=== PATIENT | female | born 1940 | race Caucasian/White ===

== ENCOUNTER 2018-03-10 19:08 | Emergency (ER) | payer MEDICARE ==
[2018-03-10] MEDS ORDERED: SODIUM CHLORIDE 0.9% 500 ML IV STA (19:47)
--- NOTE | 2018-03-10 19:50 | ED ---
General Adult HPI - General Source: patient, family, RN notes reviewed Mode of arrival: ambulatory Limitations: no limitations <Luiz Smith - Last Filed: 03/10/18 20:53> <Vee Boyd - Last Filed: 03/10/18 23:17> <Giorgi Rice - Last Filed: 03/10/18 23:19> - General Chief complaint: Abdominal Pain Stated complaint: Abd Pain Time Seen by Provider: 03/10/18 19:10 - History of Present Illness Initial comments: This is an 78-year-old female who presents to the emergency department complaining of right upper quadrant abdominal pain. Patient states she has had intermittent pain for years but more recently the pain has become much more frequent and much more intense. Patient states it happens anytime she eats now. Patient denies any fever chills. Patient states the pain radiates to her back. Patient states she does get nauseated sometimes but is not currently nauseated. Patient denies any vomiting. Patient denies any lower abdominal pain. Patient denies any diarrhea. Patient denies chest pain difficulty breathing or shortness of breath. 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 (Luiz Smith) - Related Data Home Medications Medication Instructions Recorded Confirmed Aspirin EC [Ecotrin] 325 mg PO DAILY 03/10/18 03/10/18 Cholecalciferol [Vitamin D3] 1,000 unit PO DAILY 03/10/18 03/10/18 [place]-3 Fatty Acids [[place]-3] 1,000 mg PO DAILY 03/10/18 03/10/18 Previous Rx's Medication Instructions Recorded Dicyclomine [Bentyl] 20 mg PO QID #15 tablet 03/10/18 Allergies Allergy/AdvReac Type Severity Reaction Status Date / Time codeine AdvReac shakey Verified 03/10/18 20:03 Review of Systems ROS Other: All systems not noted in ROS Statement are negative. <Luiz Smith - Last Filed: 03/10/18 20:53> ROS Other: All systems not noted in ROS Statement are negative. <Vee Boyd - Last Filed: 03/10/18 23:17> ROS Other: All systems not noted in ROS Statement are negative. <Giorgi Rice - Last Filed: 03/10/18 23:19> ROS Statement: Those systems with pertinent positive or pertinent negative responses have been documented in the HPI. Past Medical History Past Medical History: No Reported History History of Any Multi-Drug Resistant Organisms: None Reported Past Surgical History: Heart Catheterization With Stent, Tonsillectomy Past Psychological History: No Psychological Hx Reported Smoking Status: Former smoker Past Alcohol Use History: Occasional Past Drug Use History: None Reported <Luiz Smith - Last Filed: 03/10/18 20:53> General Exam Limitations: no limitations <Luiz Smith - Last Filed: 03/10/18 20:53> <Vee Boyd - Last Filed: 03/10/18 23:17> <Giorgi Rice - Last Filed: 03/10/18 23:19> - General Exam Comments Initial Comments: GENERAL: Patient is well-developed and well-nourished. Patient is nontoxic and well- hydrated and is in mild distress. ENT: Neck is soft and supple. No significant lymphadenopathy is noted. Oropharynx is clear. Moist mucous membranes. Neck has full range of motion without eliciting any pain. EYES: The sclera were anicteric and conjunctiva were pink and moist. Extraocular movements were intact and pupils were equal round and reactive to light. Eyelids were unremarkable. PULMONARY: Unlabored respirations. Good breath sounds bilaterally. No audible rales rhonchi or wheezing was noted. CARDIOVASCULAR: There is a regular rate and rhythm without any murmurs gallops or rubs. ABDOMEN: Right upper quadrant abdominal pain. No palpable organomegaly was noted. There is no palpable pulsatile mass. SKIN: Skin is clear with no lesions or rashes and otherwise unremarkable. NEUROLOGIC: Patient is alert and oriented x3. Cranial nerves II through XII are grossly intact. Motor and sensory are also intact. Normal speech, volume and content. Symmetrical smile. MUSCULOSKELETAL: Normal extremities with adequate strength and full range of motion. No lower extremity swelling or edema. No calf tenderness. LYMPHATICS: No significant lymphadenopathy is noted PSYCHIATRIC: Normal psychiatric evaluation. (Luiz Smith) Vital Signs 03/10/18 03/10/18 03/10/18 19:09 21:05 22:19 Temperature 99 F Pulse Rate 100 82 78 Respiratory 20 18 18 Rate Blood Pressure 218/78 211/88 178/76 O2 Sat by Pulse 98 100 94 L Oximetry Medical Decision Making - Lab Data Result diagrams: 03/10/18 20:03 03/10/18 20:03 <Luiz Smith - Last Filed: 03/10/18 20:53> - Lab Data Result diagrams: 03/10/18 20:03 03/10/18 20:03 <Vee Boyd - Last Filed: 03/10/18 23:17> - Lab Data Result diagrams: 03/10/18 20:03 03/10/18 20:03 <Giorgi Rice - Last Filed: 03/10/18 23:19> - Medical Decision Making EKG shows normal sinus rhythm at 83 bpm AL interval is 206 QRS is 84 QT interval 362 QTC is 425. Patient's EKG shows no ST segment elevation or depression or T wave abnormalities are noted. Dr. Lehman will be taking over the care of this patient at 9 PM (Luiz Smith) - Lab Data Lab Results 03/10/18 03/10/18 03/10/18 Range/Units 20:03 20:03 20:08 WBC 8.9 (3.8-10.6) k/uL RBC 5.66 H (3.80-5.40) m/uL Hgb 11.7 (11.4-16.0) gm/dL Hct 39.2 (34.0-46.0) % MCV 69.2 L (80.0-100.0) fL MCH 20.7 L (25.0-35.0) pg MCHC 29.9 L (31.0-37.0) g/dL RDW 16.8 H (11.5-15.5) % Plt Count 195 (150-450) k/uL Neutrophils % 72 % Lymphocytes % 19 % Monocytes % 7 % Eosinophils % 1 % Basophils % 1 % Neutrophils # 6.4 (1.3-7.7) k/uL Lymphocytes # 1.7 (1.0-4.8) k/uL Monocytes # 0.6 (0-1.0) k/uL Eosinophils # 0.1 (0-0.7) k/uL Basophils # 0.0 (0-0.2) k/uL Hypochromasia Marked Anisocytosis Slight Microcytosis Marked Sodium 140 (137-145) mmol/L Potassium 4.9 (3.5-5.1) mmol/L Chloride 108 H (98-107) mmol/L Carbon Dioxide 22 (22-30) mmol/L Anion Gap 10 mmol/L BUN 22 H (7-17) mg/dL Creatinine 0.90 (0.52-1.04) mg/dL Est GFR (CKD-EPI)AfAm 70 (>60 ml/min/1.73 sqM) Est GFR (CKD-EPI)NonAf 61 (>60 ml/min/1.73 sqM) Glucose 98 (74-99) mg/dL Calcium 9.5 (8.4-10.2) mg/dL Total Bilirubin 0.7 (0.2-1.3) mg/dL AST 29 (14-36) U/L ALT 23 (9-52) U/L Alkaline Phosphatase 70 (38-126) U/L Total Protein 7.3 (6.3-8.2) g/dL Albumin 4.0 (3.5-5.0) g/dL Amylase 56 (30-110) U/L Lipase 96 (23-300) U/L Urine Color Light Yellow Urine Appearance Clear (Clear) Urine pH 5.5 (5.0-8.0) Ur Specific [place] 1.005 (1.001-1.035) Urine Protein Negative (Negative) Urine Glucose (UA) Negative (Negative) Urine Ketones Negative (Negative) Urine Blood Negative (Negative) Urine Nitrite Negative (Negative) Urine Bilirubin Negative (Negative) Urine Urobilinogen <2.0 (<2.0) mg/dL Ur Leukocyte Esterase Negative (Negative) Disposition <Luiz Smith - Last Filed: 03/10/18 20:53> Is patient prescribed a controlled substance at d/c from ED?: No <Vee Boyd - Last Filed: 03/10/18 23:17> Is patient prescribed a controlled substance at d/c from ED?: No <Giorgi Rice - Last Filed: 03/10/18 23:19> Clinical Impression: Abdominal pain, Biliary colic, Hypertension Disposition: HOME SELF-CARE Condition: Good Instructions: Abdominal Pain (ED), Hypertension (ED) Prescriptions: Dicyclomine [Bentyl] 20 mg PO QID #15 tablet Referrals: Fran Mendoza MD [Medical Doctor] - 1-2 days James Drake MD [REFERRING] - 1-2 days
[2018-03-10 20:13] LABS: Anisocytosis Slight; Basophils % (A) 1 %; Eosinophils # (A) 0.1 k/uL (0-0.7); Eosinophils % (A) 1 %; HCT 39.2 % (34.0-46.0); HGB 11.7 gm/dL (11.4-16.0); Hypochromasia Marked; Lymphocytes # (A) 1.7 k/uL (1.0-4.8); Lymphocytes % (A) 19 %; MCH 20.7 pg (25.0-35.0); MCHC 29.9 g/dL (31.0-37.0); MCV 69.2 fL (80.0-100.0); Mean Platelet Volume 6.1; Microcytosis Marked; Monocytes # (A) 0.6 k/uL (0-1.0); Monocytes % (A) 7 %; Neutrophils # (A) 6.4 k/uL (1.3-7.7); Neutrophils % (A) 72 %; Platelet Count 195 k/uL (150-450); RBC 5.66 m/uL (3.80-5.40); RDW 16.8 % (11.5-15.5); WBC 8.9 k/uL (3.8-10.6)
[2018-03-10 20:28] LABS: Calcium 9.5 mg/dL (8.4-10.2); Potassium 4.9 mmol/L (3.5-5.1); Total Bilirubin 0.7 mg/dL (0.2-1.3); Total Protein 7.3 g/dL (6.3-8.2)
[2018-03-10 20:33] LABS: Appearance,Urine Clear (Clear); Bilirubin,Urine Negative (Negative); Blood,Urine Negative (Negative); Color,Urine Light Yellow; Glucose,Urine (UA) Negative (Negative); Ketones,Urine Negative (Negative); Leukocyte Esterase,Urine Negative (Negative); Nitrite,Urine Negative (Negative); PH, Urine 5.5 (5.0-8.0); Protein,Urine Negative (Negative); Specific Gravity,Urine 1.005 (1.001-1.035); Urobilinogen,Urine <2.0 mg/dL (<2.0)
--- NOTE | 2018-03-10 20:58 | US ---
EXAMINATION TYPE: US gallbladder DATE OF EXAM: 03/10/2018 COMPARISON: NONE CLINICAL HISTORY: Pain. RUQ pain EXAM MEASUREMENTS: Liver Length: 17.7 cm Gallbladder Wall: 0.3 cm CBD: 1.1 cm Right Kidney: 10.0 x 4.0 x 4.0 cm Pancreas: Tail obscured by overlying bowel gas Liver: Increased attenuation Gallbladder: Multiple stones seen. Evidence for sonographic Vega's sign: No CBD: Dilated. Right Kidney: No hydronephrosis or masses seen Multiple gallstones seen with dilated CBD 1..1 cm. IMPRESSION: Numerous gallstones. Large common bile duct but no dilated intrahepatic bile ducts. This could relate to some chronic gallbladder dysfunction.
[2018-03-10 21:06] VITALS: RESP 18
[2018-03-10] MEDS ORDERED: ONDANSETRON 4 MG/2 ML VIAL IVP STA (21:14)
[2018-03-10] MEDS ORDERED: HYDROmorphone 1 MG/ML 1 ML SYRINGE IVP STA (21:14)
--- NOTE | 2018-03-10 22:13 | CT ---
EXAMINATION TYPE: CT abdomen pelvis w con DATE OF EXAM: 03/10/2018 COMPARISON: None HISTORY: Right upper quadrant abdominal pain. CT DLP: 1525.2 mGycm Automated exposure control for dose reduction was used. TECHNIQUE: Helical acquisition of images was performed from the lung bases through the pelvis. CONTRAST: Performed without Oral Contrast and with IV Contrast, patient injected with 100ml mL of Isovue 300. FINDINGS: Lung bases are clear of consolidation. There is no pleural effusion. Heart appears slightly enlarged. Liver and spleen appear normal. Pancreas appears normal. Bile ducts are not dilated. There are multip le calcified gallstones. There is no adrenal mass. Kidneys show satisfactory contrast opacification. There is no hydronephrosi s. There is no retroperitoneal adenopathy. Abdominal aorta is atheromatous. Bladder distends smoothly . Uterus is anteverted. There is no intestinal wall thickening. There are no dilated loops. Appendix appears normal. There are spondylotic changes in the lumbar spine. There is slight enlargement of the endometrial cavity. There is umbilical hernia that contains fat. There is probably bony spinal steno sis at L4-5 due to facet arthropathy and disc bulging. There is similar change also at L3-4. IMPRESSION: CALCIFIED GALLSTONES. NO DILATED DUCTS. MILD CARDIOMEGALY. SLIGHT ENLARGEMENT OF ENDOMETRIAL CAVITY FOR THE PATIENT'S AGE THAT COULD RELATE TO SOME HYPERPLASIA. NORMAL APPENDIX. 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
[2018-03-10 23:26] VITALS: BP 191/64; PULSE 80; TEMP 97.9
== END 2018-03-10 23:28 | disposition home or self-care (01) ==
LOC: EC 19:08
DX: K80.50 Calculus of bile duct without cholangitis or cholecystitis without obstruction (principal); I10 Essential (primary) hypertension; Z87.891 Personal history of nicotine dependence; Z79.82 Long term (current) use of aspirin; Z79.899 Other long term (current) drug therapy; Z88.5 Allergy status to narcotic agent; Z95.5 Presence of coronary angioplasty implant and graft
CPT/HCPCS: 36415; 93005; 80053; 82150; 83690; 85025; 81003; 76705; 74177; 99284; 96374; 96375; 96361 ×3; J2405; J1170; Q9967

== ENCOUNTER → 2022-05-20 | Outpatient (CLI) | payer MEDICARE ==
--- NOTE | 2022-05-20 12:37 | CT ---
EXAMINATION TYPE: CT left knee - [facility] Protocol CT DLP: 602 mGycm, Automated exposure control for dose reduction was used. DATE OF EXAM: 05/20/2022 12:27 PM COMPARISON: None CLINICAL INDICATION:Female, 82 years old with history of M25.562 L knee pain; Left ALFREDO knee. TECHNIQUE: Axial images were obtained of the left knee Alfredo protocol . Additional coronal and sagitt al reformatted images and soft tissue and bone window were obtained for review. 3-D reconstruction wa s created on a separate workstation. Contrast used: None Oral contrast used: None FINDINGS: There is no evidence of fracture, subluxation, or dislocation. No significant soft tissue swelling or joint effusion is identified. No focal muscular atrophy or edema is identified. No radiop aque foreign body identified. Degeneration changes of the bilateral hips with osteophyte formation of the acetabulum. There is degeneration of the pubic symphysis. Visualized portions of the pelvis demo nstrate no acute findings. There is degeneration changes involving the left knee with osteophytes of the patella femoral condyles and tibial plateau. The visualized ankles are within normal limits witho ut significant abnormality. There is no acute fractures of the visualized osseous structures. IMPRESSION: 1. Left knee osteoarthritic changes. 2. No evidence of fracture.
== END | disposition home or self-care (01) ==
LOC: RADCTMAIN 11:40
PROVIDERS: ATTEND Orthopaedic Surgery
DX: M17.12 Unilateral primary osteoarthritis, left knee (principal)

== ENCOUNTER → 2022-06-09 | Outpatient (CLI) | payer MEDICARE ==
[2022-06-09 12:58] LABS: Partial Thromboplastin Time 23.2 sec (22.0-30.0); Prothrombin Time 10.4 sec (9.0-12.0)
[2022-06-09 19:22] LABS: African American GFR (CKD) 53.4 (60.0-200.0); Albumin 4.6 g/dL (3.8-4.9); Albumin/Globulin Ratio 1.84 (1.60-3.17); Anion Gap 13.6 mmol/L (10.00-18.00); BUN/Creat Ratio 19.09 Ratio (12.00-20.00); Calcium 10.2 mg/dL (8.7-10.3); Carbon Dioxide 24.4 mmol/L (20.0-27.5); Globulin 2.5 g/dL (1.6-3.3); Non-African American GFR(CKD) 46.1 (60.0-200.0); Potassium 4.8 mmol/L (3.5-5.5); Total Bilirubin 0.7 mg/dL (0.30-1.20); Total Protein 7.1 g/dL (6.2-8.2)
[2022-06-09 19:33] LABS: HCT 41.4 % (37.2-46.3); HGB 12.3 g/dL (12.0-15.0); MCHC 29.7 g/dL (32.0-37.0); MCV 70.6 fL (80.0-97.0); NRBC Per 100 WBC 0 /100 WBCS (0.0-0.0); Platelet Count 203 X 10*3/uL (140-440); RBC 5.86 X 10*6/uL (4.10-5.20); RDW 19.5 % (11.5-14.5); WBC 8.71 X 10*3/uL (4.50-10.00)
[2022-06-09 20:06] LABS: Appearance,Urine Clear (Clear); Bilirubin,Urine Negative (Negative); Blood,Urine Negative (Negative); Color,Urine Yellow (Yellow); Ketones,Urine Negative (Negative); Nitrite,Urine Negative (Negative); Specific Gravity,Urine 1.023 (1.001-1.030); Urobilinogen,Urine 0.2 (0.2,1.0)
[2022-06-09 20:12] LABS: Bacteria,Urine 1+ /HPF (None Seen)
== END | disposition home or self-care (01) ==
LOC: LABWHC1 11:53
PROVIDERS: ATTEND Orthopaedic Surgery
DX: Z01.812 Encounter for preprocedural laboratory examination (principal); M17.12 Unilateral primary osteoarthritis, left knee
CPT/HCPCS: 36415; 80053; 81001; 85027; 85610; 85730; 87070

== ENCOUNTER 2022-06-13 18:25 | Emergency (ER) | payer MEDICARE ==
--- NOTE | 2022-06-13 19:11 | ED ---
General Adult HPI - General Chief complaint: Recheck/Abnormal Lab/Rx Stated complaint: hypertension Time Seen by Provider: 06/13/22 18:35 Source: patient, RN notes reviewed Mode of arrival: ambulatory Limitations: no limitations - History of Present Illness Initial comments: 82-year-old female presents to the emergency department for evaluation of kayla knight blood pressure. Patient states she recently began taking losartan twice daily for hypertension. States she is preparing for a knee surgery and is in the process of getting medical clearance. States this antihypertensive new for her and has taken relatively few medications over the years. States she does have a history of CAD and had 2 cardiac stents. States she is scheduled to see her venetian blind worker on Wednesday for cardiac clearance, then will see her PCP for blood pressure reevaluation that afternoon. Patient states her blood pressure was 176/83 using an automatic cuff yesterday. Reports manual pressure of 220/116 today. States she feels well. Denies headache, dizziness, blurry vis ion, chest pain, shortness of breath, abdominal pain, nausea, vomiting, diarrhea, or dysuria. - Related Data Home Medications Medication Instructions Recorded Confirmed Aspirin EC [Ecotrin] 325 mg PO DAILY 03/10/18 03/10/18 Cholecalciferol [Vitamin D3] 1,000 unit PO DAILY 03/10/18 03/10/18 [place]-3 Fatty Acids [[place]-3] 1,000 mg PO DAILY 03/10/18 03/10/18 Previous Rx's Medication Instructions Recorded Dicyclomine [Bentyl] 20 mg PO QID #15 tablet 03/10/18 Allergies Allergy/AdvReac Type Severity Reaction Status Date / Time codeine AdvReac abeba Verified 06/13/22 18:31 Review of Systems ROS Statement: Those systems with pertinent positive or pertinent negative responses have been documented in the HPI. ROS Other: All systems not noted in ROS Statement are negative. Past Medical History Past Medical History: Hypertension History of Any Multi-Drug Resistant Organisms: None Reported Past Surgical History: Heart Catheterization With Stent, Tonsillectomy Past Psychological History: No Psychological Hx Reported Smoking Status: Never smoker Past Alcohol Use History: Occasional Past Drug Use History: None Reported General Exam Limitations: no limitations (Well-developed, well-nourished female in no acute distress.) General appearance: alert, in no apparent distress Head exam: Present: other (Large swollen area right TMJ- known cyst) Eye exam: Present: normal appearance, PERRL, EOMI. Absent: scleral icterus, conjunctival injection, periorbital swelling, periorbital tenderness ENT exam: Present: normal oropharynx, mucous membranes moist Neck exam: Present: normal inspection, full ROM. Absent: tenderness, lymphadenopathy Respiratory exam: Present: normal lung sounds bilaterally. Absent: respiratory distress, wheezes, rales, rhonchi, stridor, chest wall tenderness Cardiovascular Exam: Present: regular rate, normal rhythm, normal heart sounds, systolic murmur GI/Abdominal exam: Present: soft, normal bowel sounds. Absent: distended, tenderness, guarding, rebound, rigid Back exam: Absent: CVA tenderness (R) Neurological exam: Present: alert, oriented X3, normal gait Psychiatric exam: Present: anxious (patient is anxious about high blood pressure as she is scheduled for a knee surgery and is concerned that this will impact her surgery) Skin exam: Present: warm, dry, intact, normal color. Absent: rash Course Vital Signs 06/13/22 06/13/22 06/13/22 18:27 20:05 21:40 Temperature 98.1 F 97.6 F Pulse Rate 83 75 Respiratory 20 18 Rate Blood Pressure 221/83 199/104 158/74 O2 Sat by Pulse 99 98 Oximetry - Reevaluation(s) Reevaluation #1: 06/13/22 21:30 Several discussions with patient and family members about realistic expectation of goal blood pressure given patient has only been on new anti-hypertensive medications for a couple of days, and has not been taking any antihypertensive medications for the past few years. Family explains that she has only recently begun monitoring her blood pressure again as she is very concerned about her knee surgery. Patient is using an automated cuff with the assistance of family. I rechecked patient's blood pressure manually on her left arm after giving a small dose of Ativan and found it to be 158/74. Patient and family are reassured by this and verbalize readiness for discharge. Medical Decision Making - Medical Decision Making This is a pleasant 82-year-old female with a past medical history of CAD and cardiac stents who presents to the emergency department for evaluation of hypertension. Upon exam, patient is well-appearing, pleasant, somewhat anxious, and in no acute distress. Physical exam findings are overall unremarkable. In preparation for an upcoming knee surgery, patient saw her PCP for medical clearance. She was started on an antihypertensive medication this past week that she has been taking as prescribed. She is closely monitoring her blood pressure at home and found it to be substantially elevated today (200s/110s), despite taking her antihypertensive. Laboratory studies were obtained. Troponin negative. BUN 22, creatinine 1.09. GFR 47. Renal function is diminished from 2018 labs, however is unchanged from laboratory studies obtained this past week. Patient was given an Ativan and reports feeling improved. Recheck of blood pressure using manual cuff revealed reading of 158/74. Findings were discussed with patient and family. Patient is encouraged to continue taking her antihypertensive medication as prescribed. She is scheduled to see her PCP and ven[employer]ian blind worker on Wednesday. Return parameters were discussed in detail. Patient and family verbalized understanding and agreed with this plan. Attending: Dwayne - Lab Data Result diagrams: 06/13/22 19:20 06/13/22 19:20 Lab Results 06/13/22 06/13/22 06/13/22 Range/Units 19:20 19:20 19:20 WBC 10.2 (3.8-10.6) k/uL RBC 5.82 H (3.80-5.40) m/uL Hgb 12.6 (11.4-16.0) gm/dL Hct 40.5 (34.0-46.0) % MCV 69.6 L (80.0-100.0) fL MCH 21.7 L (25.0-35.0) pg MCHC 31.2 (31.0-37.0) g/dL RDW 17.6 H (11.5-15.5) % Plt Count 181 (150-450) k/uL MPV 7.7 Neutrophils % 70 % Lymphocytes % 19 % Monocytes % 7 % Eosinophils % 2 % Basophils % 1 % Neutrophils # 7.2 (1.3-7.7) k/uL Lymphocytes # 2.0 (1.0-4.8) k/uL Monocytes # 0.7 (0-1.0) k/uL Eosinophils # 0.2 (0-0.7) k/uL Basophils # 0.1 (0-0.2) k/uL Hypochromasia Marked Poikilocytosis Slight Anisocytosis Slight Microcytosis Marked Sodium 142 (137-145) mmol/L Potassium 4.6 (3.5-5.1) mmol/L Chloride 108 H (98-107) mmol/L Carbon Dioxide 25 (22-30) mmol/L Anion Gap 9 mmol/L BUN 23 H (7-17) mg/dL Creatinine 1.09 H (0.52-1.04) mg/dL Est GFR (CKD-EPI)AfAm 54 (>60 ml/min/1.73 sqM) Est GFR (CKD-EPI)NonAf 47 (>60 ml/min/1.73 sqM) Glucose 109 H (74-99) mg/dL Calcium 9.5 (8.4-10.2) mg/dL Total Bilirubin 0.8 (0.2-1.3) mg/dL AST 24 (14-36) U/L ALT 22 (4-34) U/L Alkaline Phosphatase 85 (38-126) U/L Troponin I <0.012 (0.000-0.034) ng/mL Total Protein 7.6 (6.3-8.2) g/dL Albumin 4.6 (3.5-5.0) g/dL - EKG Data EKG shows normal: sinus rhythm Rate: normal EKG Comments: EKG obtained at 1907 shows sinus rhythm with first-degree AV block and inferior myocardial infarction, probably old. Ventricular rate 75, ID interval 228, QRS duration 96, QT/QTC 370/399. Interpretation abnormal ECG. Disposition Clinical Impression: Hypertension, Renal insufficiency Disposition: HOME SELF-CARE Condition: Stable Instructions (If sedation given, give patient instructions): Hypertension in the Older Adult (ED) Additional Instructions: Continue taking your blood pressure medications as prescribed. Relax. Avoid stress and exertional activity. Check her blood pressure twice daily and record it. Keep your follow-up appointment scheduled for Wednesday. Return to the emergency department with any new, worsening, or concerning symptoms. Is patient prescribed a controlled substance at d/c from ED?: No Referrals: Sean Medina MD [Primary Care Provider] - 1-2 days Time of Disposition: 21:43
[2022-06-13 20:03] LABS: Albumin 4.6 g/dL (3.5-5.0); Calcium 9.5 mg/dL (8.4-10.2); Potassium 4.6 mmol/L (3.5-5.1); Total Bilirubin 0.8 mg/dL (0.2-1.3); Total Protein 7.6 g/dL (6.3-8.2)
[2022-06-13 20:09] LABS: Anisocytosis Slight; Basophils # (A) 0.1 k/uL (0-0.2); Basophils % (A) 1 %; Eosinophils # (A) 0.2 k/uL (0-0.7); Eosinophils % (A) 2 %; HCT 40.5 % (34.0-46.0); HGB 12.6 gm/dL (11.4-16.0); Hypochromasia Marked; Lymphocytes % (A) 19 %; MCH 21.7 pg (25.0-35.0); MCHC 31.2 g/dL (31.0-37.0); MCV 69.6 fL (80.0-100.0); Mean Platelet Volume 7.7; Microcytosis Marked; Monocytes # (A) 0.7 k/uL (0-1.0); Monocytes % (A) 7 %; Neutrophils # (A) 7.2 k/uL (1.3-7.7); Neutrophils % (A) 70 %; Platelet Count 181 k/uL (150-450); Poikilocytosis Slight; RBC 5.82 m/uL (3.80-5.40); RDW 17.6 % (11.5-15.5); WBC 10.2 k/uL (3.8-10.6)
[2022-06-13 20:10] VITALS: PULSE 75; RESP 18; TEMP 97.6
[2022-06-13] MEDS ORDERED: LORazepam 1 MG TAB PO STA (20:38)
[2022-06-13 21:41] VITALS: BP 158/74
== END 2022-06-13 21:57 | disposition home or self-care (01) ==
LOC: EC 18:25
DX: I10 Essential (primary) hypertension (principal); N28.9 Disorder of kidney and ureter, unspecified; Z88.5 Allergy status to narcotic agent; Z79.82 Long term (current) use of aspirin
CPT/HCPCS: 36415; 80053; 84484; 85025; 93005; 99283

== ENCOUNTER → 2022-06-23 | Outpatient (CLI) | payer MEDICARE ==
[2022-06-23 18:20] LABS: HCT 37.8 % (37.2-46.3); HGB 11.7 g/dL (12.0-15.0); MCH 21.1 pg (27.0-32.0); MCV 68.2 fL (80.0-97.0); NRBC Per 100 WBC 0 /100 WBCS (0.0-0.0); Platelet Count 199 X 10*3/uL (140-440); RBC 5.54 X 10*6/uL (4.10-5.20); RDW 18.6 % (11.5-14.5); WBC 9.67 X 10*3/uL (4.50-10.00)
[2022-06-23 18:24] LABS: African American GFR (CKD) 48.1 (60.0-200.0); Anion Gap 11.2 mmol/L (10.00-18.00); Blood Urea Nitrogen 28.7 mg/dL (9.0-27.0); Carbon Dioxide 23.8 mmol/L (20.0-27.5); Non-African American GFR(CKD) 41.5 (60.0-200.0); Potassium 4.6 mmol/L (3.5-5.5)
== END | disposition home or self-care (01) ==
LOC: LABPAT 12:05
PROVIDERS: ATTEND Internal Medicine Interventional Cardiology
DX: Z01.812 Encounter for preprocedural laboratory examination (principal); I25.5 Ischemic cardiomyopathy
CPT/HCPCS: 80051; 82565; 84520; 85027

== ENCOUNTER 2022-06-26 10:26 | Day surgery (SDC) | payer MEDICARE ==
[~2022-06-26 10:26] MED LIST: ALPRAZolam 0.25 MG TAB PO PRN; ALPRAZolam 0.5 MG TAB PO PRN; ASPIRIN 325 MG TAB PO STA; ATORVASTATIN 80 MG TAB PO STA; HEPARIN SODIUM,PORCINE 10,000 UNIT in SODIUM CHLORIDE 0.9% 1,000 ML IRRIGATION PRN; HEPARIN SODIUM,PORCINE 2,500 UNIT in SODIUM CHLORIDE 0.9% 250 ML IRRIGATION PRN; NITROGLYCERIN SL TABS 0.4 MG TAB SUBLINGUAL PRN; SODIUM CHLORIDE 0.9% 1,000 ML in EMPTY BAG 1 BAG IV ONE
[2022-06-26] MEDS ORDERED: SODIUM CHLORIDE 0.9% 1,000 ML IV ONE (10:56)
[2022-06-26] MEDS ORDERED: VERAPAMIL 2.5 MG/ML 2 ML AMP ONE (11:16)
[2022-06-26] MEDS ORDERED: HEPARIN SODIUM 1,000 UN/ML (10ML VL) ONE (11:57)
[2022-06-26] MEDS ORDERED: MIDAZOLAM 2 MG/2 ML VIAL IVP ONE (12:04)
[2022-06-26] MEDS ORDERED: LIDOCAINE 1% INJ 10MG/ML (5 ML VIAL-PF) SQ ONE (12:10)
[2022-06-26] MEDS ORDERED: VERAPAMIL SYRINGE (5 MG/10 ML) INTRAARTER ONE (12:13)
[2022-06-26] MEDS: HEPARIN SODIUM 1,000 UN/ML (10ML VL) IV ONE ×3 (12:21→13:02)
[2022-06-26] MEDS ORDERED: NITROGLYCERIN SL TABS 0.4 MG TAB SUBLINGUAL ONE ×3 (12:24→13:09)
[2022-06-26] MEDS ORDERED: IOPAMIDOL-370 100ML BTL INJ ONE ×3 (12:39→13:22)
[2022-06-26] MEDS: NITROGLYCERIN 1000MCG/10ML SYRINGE INTRACORON ONE ×2 (13:11→13:17)
[2022-06-26] MEDS ORDERED: CLOPIDOGREL 75 MG TAB ONE (13:19)
[2022-06-26] MEDS ORDERED: CLOPIDOGREL 75 MG TAB PO ONE (13:21)
[2022-06-26] MEDS ORDERED: SODIUM CHLORIDE 0.9% 1,000 ML IV SCH (13:45)
[2022-06-26] MEDS ORDERED: MAG HYDROX/AL HYDROX/SIMETH 30 ML CUP PO PRN (14:33)
--- NOTE | 2022-06-26 16:22 | CC ---
CARDIAC CATHETERIZATION REPORT DATE OF SERVICE: 06/26/2022. PROCEDURES PERFORMED: 1. Left heart catheterization and coronary angiography. 2. Percutaneous transluminal coronary angioplasty and stenting of proximal and mid circumflex coronary artery with drug-eluting stents. PERFORMED BY: Dr. Mojgan Salinas. Moderate conscious sedation time was 71 minutes. The patient was administered Versed. Oxygen saturation, hemodynamics, and EKG were monitored closely. CLINICAL INFORMATION: Ms. Geoffrey Marin is an 82-year-old lady with a history of CAD, previous acute inferior UT with right ventricular infarct requiring an intra-aortic balloon pump and stenting of circumflex performed in 2005, with a temporary pacemaker. She has hypertension and some peripheral vascular disease, and she came into the office to see me because she was planning on having a left total knee arthroplasty by Dr. Lopez. Prior to that, we performed a stress test, which revealed a moderate-size reversible inferolateral defect suggestive of ischemia with a fixed component. She had moderate- to-severe mitral regurgitation with ejection fraction of nearly 50%. She was advised cardiac catheterization after due discussion. She understood all details, as did the 2 granddaughters, and wished to proceed with the procedure. PROCEDURE NOTE: Under local anesthesia and strict aseptic precautions, a 6-Tanzanian introducer was placed in the right radial artery. Using a JL3.5 and JR4 catheters, I performed coronary angiography, and the same right catheter was used to check LV pressure, but LV gram was not performed. I then performed intervention of the proximal and mid circumflex before and after the obtuse marginal branch with 2 drug-eluting stents. Excellent result was achieved. The sheath was taken out, and TR band was applied as per protocol. The saturation in the fingers of the right hand was 94%. There were no complications. This patient received 600 mg of Plavix and also received intravenous heparin, and ACT was about 284. This patient is advised to be on aspirin and Plavix without interruption for 12 months. CARDIAC CATHETERIZATION FINDINGS: The left ventricular end-diastolic pressure is 18 mmHg without any gradient across aortic valve. CORONARY ANGIOGRAPHY FINDINGS: I had some difficulty getting in from the right radial site. There were some spasm and tortuosity. RIGHT CORONARY ARTERY: This vessel is totally occluded in the mid portion with limited antegrade flow, and the opacified segment of the RCA appears to be diffusely diseased. RCA, therefore, has a 100% mid occlusion without much antegrade flow. LEFT MAIN CORONARY ARTERY: Short, patent vessel, free of significant disease, bifurcates into LAD and circumflex. LEFT ANTERIOR DESCENDING CORONARY ARTERY: Good-caliber vessel, extends along the anterior wall, has about a 30% to 40% narrowing in the proximal and mid portion, gives off a good-sized diagonal branch and several septal branches, runs all the way to the apex. There are minor irregularities of anywhere from 30% to 45%, but no significant disease in the entire LAD system. LEFT POSTERIOR CIRCUMFLEX CORONARY ARTERY: Probably a codominant or a dominant vessel, that has a good-sized obtuse marginal. Obtuse marginal origin is free of significant disease other than 20% to 30% narrowing, and obtuse marginal is large and supplies a sizable amount of myocardium. Just proximal to it, there is a 60% narrowing, and distal to the obtuse marginal within the stented segment, there is a long area of about 90% stenosis. Beyond it, the vessel bifurcates into PDA and PLV, both of which have diffuse disease. The circumflex also provides collaterals to the distal RCA as well. The distal RCA seems to be filling from the collaterals to some extent, but there is diffuse disease in the distal branches of the circumflex, but the proximal and mid circumflex before and after the obtuse marginal branch has the significant stenosis. Left ventriculogram was not performed. FINAL IMPRESSION: This patient has elevated filling pressures. No significant gradient across aortic valve. Probably a codominant system with total occlusion of the right coronary artery, and mid circumflex has an in-stent restenosis of 90%, and before the obtuse marginal, there is a 60% to 70% narrowing within the circumflex. Left anterior descending has minor irregularities, no significant disease. RECOMMENDATIONS: I advised PCI of circumflex and proceeded to perform this in the same setting. PCI PROCEDURE DETAILS: I initially tried a JL3.5, but I had difficulty seating the catheter. I switched over to a 3.0, but I still had difficulty. After some trying a couple of catheters, eventually with XB3.0 left guide catheter, I was able to cannulate the left main very well. A Runthrough wire was used to cross the lesion. Wire was kept in the distal branches of circumflex. Pre-dilatation was performed of the area below the area just distal to the obtuse marginal with a 2.5-caliber 15-mm long NC Trek balloon. I then deployed a 15-mm long 3.25-caliber Xience stent with excellent angiographic result. I noted that the area just proximal to the obtuse marginal was also hazy and had about a 70% narrowing in SLOVAK views. I, therefore, decided to proceed with intervention of this vessel. I used a 3.25-caliber Xience stent and deployed this, and the distal end of the stent was kept just before the obtuse marginal branch. Excellent angiographic result was achieved. There was remarkable improvement in the angiographic appearance and flow without complication. The opacification of the diagonal was also excellent. The patient's ACT was 284 with a total of 6000 units of heparin. She received 600 mg of Plavix. Excellent angiographic result was achieved. The sheath was taken out, and TR band was applied, and she was sent to the room in stable condition. Results were discussed with the patient and family. MMODL / IJN: [id number] /
--- NOTE | 2022-06-26 17:28 | CA ---
Transthoracic Echo Report Name: Geoffrey Marin Age: 82 Gender: F : 1940 Exam Date: 06/26/2022 14:02 Exam Location: [facility] Ht (in): 58 Wt (lb): 201 Ordering Physician: Bonilla Salinas MD ([id number]) Attending/Referring Phys: Steel Shot Header Operator Princess Marie RDCS Procedure CPT: Indications: EVALUATE FOR MITRAL REGURGE AND LV FUNCTION Cardiac Hx: Technical Quality: Fair Contrast 1: Total Dose (mL): Contrast 2: Total Dose (mL): MEASUREMENTS (Male / Female) Normal Values 2D ECHO LV Diastolic Diameter PLAX 3.9 cm 4.2 - 5.9 / 3.9 - 5.3 cm LV Systolic Diameter PLAX 2.9 cm IVS Diastolic Thickness 1.3 cm 0.6 - 1.0 / 0.6 - 0.9 cm LVPW Diastolic Thickness 1.3 cm 0.6 - 1.0 / 0.6 - 0.9 cm LV Relative Wall Thickness 0.7 RV Internal Dim ED PLAX 3.6 cm LA Volume 42.0 cm??? 18 - 58 / 22 - 52 cm??? M-MODE Aortic Root Diameter MM 3.3 cm LA Systolic Diameter MM 5.0 cm LA Ao Ratio MM 1.5 AV Cusp Separation MM 1.9 cm DOPPLER AV Peak Velocity 174.8 cm/s AV Peak Gradient 12.2 mmHg LVOT Peak Velocity 75.0 cm/s LVOT Peak Gradient 2.2 mmHg MV Area PHT 2.4 cm??? Mitral E Point Velocity 112.6 cm/s Mitral A Point Velocity 144.3 cm/s Mitral E to A Ratio 0.8 MV Deceleration Time 312.6 ms MV E' Velocity 3.0 cm/s Mitral E to MV E' Ratio 37.0 FINDINGS Left Ventricle Moderate LVH. Left ventricular ejection fraction is estimated at 50-55 %.left ventricular cavity size normal. Right Ventricle Mild right ventricular dilatation. Mild pulmonary hypertension. Right Atrium Normal right atrial size. Left Atrium Left atrial size at the upper limits of normal. Mitral Valve Mitral valve thickened. Moderate mitral annular calcification. moderate mitral regurgitation. Aortic Valve No aortic valve stenosis or regurgitation. Aortic valve sclerosis. Tricuspid Valve Mild tricuspid regurgitation.structurally normal tricuspid valve. Pulmonic Valve Pulmonic valve not well visualized. Pericardium No pericardial effusion. Aorta Normal size aortic root and proximal ascending aorta. CONCLUSIONS 1. The ventricle systolic function borderline normal with moderate hypertrophy 2. Moderate mitral anulus calcification with moderate mitral regurgitation 3. Mild tricuspid regurgitation with mild pulmonary hypertension Previewed by: Dr. Lalitha Haskins MD (Electronically Signed) Final Date: 26 June 2022 17:28
[2022-06-26 17:42] VITALS: RESP 18
[2022-06-26] MEDS ORDERED: LOSARTAN 50 MG TAB PO SCH (21:00)
[2022-06-27 07:49] VITALS: BP 187/61
--- NOTE | 2022-06-27 08:41 | P.DS ---
Providers Attending physician: Bonilla Salinas Primary care physician: Sean Echevarria Miriam Hospital Course: The patient is a pleasant 82-year-old female patient who was admitted to the hospital yesterday and underwent a heart catheterization by Dr. Salinas and stenting of the left circumflex. The patient was seen this morning. She is asymptomatic. She is here with a 90 stable. The patient is going to be discharged home on dual antiplatelet therapy and high intensity statin and follow-up with Dr. Salinas in the office in a week Plan - Discharge Summary Discharge Rx Participant: No New Discharge Prescriptions: Continue Furosemide [Lasix] 20 mg PO DAILY Losartan Potassium [Cozaar] 25 mg PO BID Atorvastatin Calcium [Lipitor] 80 mg PO HS Aspirin 81 mg PO DAILY Clopidogrel [Plavix] 75 mg PO DAILY Metoprolol Tartrate 50 mg PO DAILY Nitroglycerin Sl Tabs [Nitrostat] 0.4 mg SL DAILY PRN PRN Reason: Chest Pain Discharge Medication List Furosemide [Lasix] 20 mg PO DAILY 06/24/22 [History] Losartan Potassium [Cozaar] 25 mg PO BID 06/24/22 [History] Metoprolol Tartrate 50 mg PO DAILY 06/24/22 [History] Aspirin 81 mg PO DAILY 06/26/22 [History] Atorvastatin Calcium [Lipitor] 80 mg PO HS 06/26/22 [History] Clopidogrel [Plavix] 75 mg PO DAILY 06/26/22 [History] Nitroglycerin Sl Tabs [Nitrostat] 0.4 mg SL DAILY PRN 06/26/22 [History] Follow up Appointment(s)/Referral(s): Bonilla Salinas MD [STAFF PHYSICIAN] - 07/08/22 10:30 am ()
[2022-06-27] MEDS ORDERED: ASPIRIN 81 MG PO SCH (09:00)
[2022-06-27] MEDS ORDERED: METOPROLOL TARTRATE 50 MG TAB PO SCH (09:00)
[2022-06-27] MEDS ORDERED: CLOPIDOGREL 75 MG TAB PO SCH (09:00)
[2022-06-27] MEDS ORDERED: ATORVASTATIN 80 MG TAB PO SCH (09:00)
[2022-06-27] MEDS ORDERED: FUROSEMIDE 20 MG TAB PO SCH (09:00)
[2022-06-27 09:44] VITALS: PULSE 64; TEMP 97.7
== END 2022-06-27 10:35 | disposition home or self-care (01) ==
LOC: CATHCVL 10:26 → 6NMEDSUR 13:28 → CATHCVL 06-27 10:35
PROVIDERS: ATTEND Internal Medicine Interventional Cardiology
DX: I34.0 Nonrheumatic mitral (valve) insufficiency (principal); I25.5 Ischemic cardiomyopathy; I73.9 Peripheral vascular disease, unspecified; I10 Essential (primary) hypertension; I25.10 Atherosclerotic heart disease of native coronary artery without angina pectoris; I25.2 Old myocardial infarction; Z98.890 Other specified postprocedural states
CPT/HCPCS: 93306; 93458; C1769 ×3; C9600; C1887 ×3; C1894; C1874 ×2; C1725; J2250; J2001; J1644; Q9967

== ENCOUNTER 2022-07-06 17:15 | Inpatient (IN) | payer MEDICARE ==
[2022-07-06 19:16] LABS: Anisocytosis Slight; Basophils # (A) 0.1 k/uL (0-0.2); Basophils % (A) 1 %; Eosinophils # (A) 0.2 k/uL (0-0.7); Eosinophils % (A) 1 %; HCT 35.5 % (34.0-46.0); HGB 11.1 gm/dL (11.4-16.0); Hypochromasia Slight; Lymphocytes # (A) 2.1 k/uL (1.0-4.8); Lymphocytes % (A) 17 %; MCH 21.5 pg (25.0-35.0); MCHC 31.2 g/dL (31.0-37.0); Mean Platelet Volume 7.5; Microcytosis Marked; Monocytes % (A) 8 %; Neutrophils # (A) 8.8 k/uL (1.3-7.7); Neutrophils % (A) 72 %; Platelet Count 171 k/uL (150-450); Poikilocytosis Slight; RBC 5.15 m/uL (3.80-5.40); RDW 17.3 % (11.5-15.5); WBC 12.4 k/uL (3.8-10.6)
[2022-07-06 19:28] LABS: Prothrombin Time 10.7 sec (9.0-12.0)
[2022-07-06 19:29] LABS: Partial Thromboplastin Time 18.2 sec (22.0-30.0)
--- NOTE | 2022-07-06 19:29 | XR ---
EXAMINATION TYPE: XR chest 2V DATE OF EXAM: 07/06/2022 COMPARISON: NONE HISTORY: Pain TECHNIQUE: 2 views FINDINGS: There is no heart failure nor confluent pneumonic infiltrate. Costophrenic angles are clear . There are no hilar masses. Heart is borderline enlarged. IMPRESSION: Borderline cardiomegaly. No active cardiopulmonary disease.
[2022-07-06 19:30] LABS: Albumin 3.8 g/dL (3.5-5.0); Calcium 8.8 mg/dL (8.4-10.2); Potassium 4.3 mmol/L (3.5-5.1); Total Bilirubin 0.5 mg/dL (0.2-1.3); Total Protein 6.3 g/dL (6.3-8.2)
--- NOTE | 2022-07-06 19:31 | CT ---
EXAMINATION TYPE: CT brain wo con for TPA DATE OF EXAM: 07/06/2022 COMPARISON: None HISTORY: ams CT DLP: 1048.4 mGycm Automated exposure control for dose reduction was used. Images obtained of the brain without contrast. There is cerebral cortical atrophy. There is 2 x 1 cm area of hypodensity anterior right internal cap emily. There are smaller 1.5 similar hypodensity anterior left internal capsule. No midline shift. No sign of intracranial hemorrhage. Calvarium is intact. IMPRESSION: Cerebral atrophy. 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 No acute abnormality.
[2022-07-06] MEDS ORDERED: ASPIRIN 81 MG PO STA (20:07)
[2022-07-06] MEDS ORDERED: SODIUM CHLORIDE 0.9% 500 ML 500 ML IV STA (20:07)
[2022-07-06 20:30] LABS: Appearance,Urine Clear (Clear); Bilirubin,Urine Negative (Negative); Blood,Urine Negative (Negative); Color,Urine Light Yellow; Glucose,Urine (UA) Negative (Negative); Ketones,Urine Negative (Negative); Leukocyte Esterase,Urine Negative (Negative); Nitrite,Urine Negative (Negative); Protein,Urine Negative (Negative); Specific Gravity,Urine 1.011 (1.001-1.035); Urobilinogen,Urine <2.0 mg/dL (<2.0)
[2022-07-06] MEDS ORDERED: NALOXONE 0.4 MG/ML 1 ML VIAL IV PRN (21:14)
[2022-07-06] MEDS ORDERED: ACETAMINOPHEN TAB 325 MG TAB PO PRN (21:14)
--- NOTE | 2022-07-06 21:17 | ED ---
Neuro HPI - General Chief Complaint: Neuro Symptoms/Deficit Stated Complaint: stroke symptoms Time Seen by Provider: 07/06/22 17:47 Source: patient, EMS Mode of arrival: EMS Limitations: no limitations - History of Present Illness Is the patient presenting with stroke symptoms?: Yes Last Known Well Date: 07/06/22 -: unknown Initial Comments: This patient is an 82-year-old woman who is here to have evaluation for possible stroke. When I review the patient, she states that she feels well. She denies any symptoms. Her family became concerned when she was speaking with a family member and today and her words sounded slurred. The patient firmly states that she believes this is because she was eating a sandwich at the time. Patient's family maintains that there was some slurring even after she had finished eating. The checked her and felt that she had some left-sided facial droop. The patient is denying any sensation of this. She denies any other weakness or change in sensation. No headache. Location: speech, left face History of same: No Place: home Severity: mild Improves With: none Worsens With: none On Anticoagulants: No Context: sudden onset Associated Symptoms: denies other symptoms Treatments Prior to Arrival: none - Related Data Home Medications: Home Medications Medication Instructions Recorded Confirmed Furosemide [Lasix] 20 mg PO DAILY 06/24/22 07/06/22 Losartan Potassium [Cozaar] 25 mg PO BID 06/24/22 07/06/22 Aspirin 81 mg PO DAILY 06/26/22 07/06/22 Atorvastatin Calcium [Lipitor] 80 mg PO HS 06/26/22 07/06/22 Clopidogrel [Plavix] 75 mg PO DAILY 06/26/22 07/06/22 Nitroglycerin Sl Tabs [Nitrostat] 0.4 mg SL DAILY PRN 06/26/22 07/06/22 Previous Rx's Medication Instructions Recorded Famotidine [Pepcid] 20 mg PO DAILY #30 tab 07/10/22 Metoprolol Tartrate 25 mg PO BID #60 tab 07/10/22 amLODIPine [Norvasc] 10 mg PO DAILY #30 tablet 07/10/22 Allergies/Adverse Reactions: Allergies Allergy/AdvReac Type Severity Reaction Status Date / Time donny us Verified 07/06/22 20:11 Review of Systems ROS Statement: Those systems with pertinent positive or pertinent negative responses have been documented in the HPI. ROS Other: All systems not noted in ROS Statement are negative. Constitutional: Denies: fever, chills Eyes: Denies: eye pain, vision change ENT: Denies: congestion Respiratory: Denies: cough, dyspnea Cardiovascular: Denies: chest pain, palpitations, syncope Gastrointestinal: Denies: abdominal pain, vomiting, diarrhea Genitourinary: Denies: dysuria, hematuria Musculoskeletal: Denies: back pain Skin: Denies: rash Neurological: Reports: weakness. Denies: headache, numbness, paresthesias General Exam Limitations: no limitations General appearance: alert, in no apparent distress Head exam: Present: atraumatic, normocephalic Eye exam: Present: normal appearance, PERRL, EOMI. Absent: scleral icterus, conjunctival injection, nystagmus ENT exam: Present: normal oropharynx, other (Patient has approximately 3 cm right parotid mass.) Neck exam: Present: normal inspection, full ROM Respiratory exam: Present: normal lung sounds bilaterally. Absent: respiratory distress, wheezes, rales, rhonchi, stridor Cardiovascular Exam: Present: regular rate, normal rhythm, normal heart sounds. Absent: systolic murmur, diastolic murmur, rubs, gallop GI/Abdominal exam: Present: soft. Absent: distended, tenderness, guarding, rebound, rigid, mass Extremities exam: Present: normal inspection, normal capillary refill. Absent: pedal edema, calf tenderness Back exam: Present: normal inspection. Absent: CVA tenderness (R), CVA tenderness (L) Neurological exam: Present: alert, oriented X3, motor sensory deficit. Absent: CN II-XII intact Expanded Patient oriented to: Present: person, place, time Speech: Present: fluid speech Cranial nerves: EOM's Intact: Normal, Tongue Deviation: Normal, Facial Palsy with Forehead Movement: Abnormal Left Cerebellar function: Finger to Nose: Normal Sensory exam: Upper Extremity Light Touch: Normal, Lower Extremity Light Touch: Normal Motor strength exam: RUE: 5, LUE: 5, RLE: 5, LLE: 5 Eye Response: (4) open spontaneously Motor Response: (6) obeys commands Verbal Response: (5) oriented Skin exam: Present: warm, dry, intact, normal color. Absent: rash Stroke MDM - Lab Data Result diagrams: 07/10/22 06:51 07/10/22 06:51 Lab Results 07/06/22 07/06/22 07/06/22 Range/Units 18:37 18:37 18:37 WBC 12.4 H (3.8-10.6) k/uL RBC 5.15 (3.80-5.40) m/uL Hgb 11.1 L (11.4-16.0) gm/dL Hct 35.5 (34.0-46.0) % MCV 69.0 L (80.0-100.0) fL MCH 21.5 L (25.0-35.0) pg MCHC 31.2 (31.0-37.0) g/dL RDW 17.3 H (11.5-15.5) % Plt Count 171 (150-450) k/uL MPV 7.5 Neutrophils % 72 % Lymphocytes % 17 % Monocytes % 8 % Eosinophils % 1 % Basophils % 1 % Neutrophils # 8.8 H (1.3-7.7) k/uL Lymphocytes # 2.1 (1.0-4.8) k/uL Monocytes # 1.0 (0-1.0) k/uL Eosinophils # 0.2 (0-0.7) k/uL Basophils # 0.1 (0-0.2) k/uL Hypochromasia Slight Poikilocytosis Slight Anisocytosis Slight Microcytosis Marked PT 10.7 (9.0-12.0) sec INR 1.0 (<1.2) APTT 18.2 L (22.0-30.0) sec Sodium 142 (137-145) mmol/L Potassium 4.3 (3.5-5.1) mmol/L Chloride 108 H (98-107) mmol/L Carbon Dioxide 26 (22-30) mmol/L Anion Gap 8 mmol/L BUN 33 H (7-17) mg/dL Creatinine 1.06 H (0.52-1.04) mg/dL Est GFR (CKD-EPI)AfAm 56 (>60 ml/min/1.73 sqM) Est GFR (CKD-EPI)NonAf 48 (>60 ml/min/1.73 sqM) Glucose 89 (74-99) mg/dL POC Glucose (mg/dL) (70-110) mg/dL POC Glu Maintenance Fitter ID Estimated Ave Glu mg/dL Hemoglobin A1c (0.0-6.0) % Calcium 8.8 (8.4-10.2) mg/dL Total Bilirubin 0.5 (0.2-1.3) mg/dL AST 21 (14-36) U/L ALT 24 (4-34) U/L Alkaline Phosphatase 66 (38-126) U/L Troponin I (0.000-0.034) ng/mL Total Protein 6.3 (6.3-8.2) g/dL Albumin 3.8 (3.5-5.0) g/dL Triglycerides (0.00-149.00) mg/dL Cholesterol (0.00-200.00) mg/dL LDL Cholesterol, Calc (0.0-131.0) mg/dL VLDL Cholesterol, Calc (5.00-40.00) mg/dL HDL Cholesterol (40.00-60.00) mg/dL Cholesterol/HDL Ratio Ratio Vitamin B12 (200.0-944.0) pg/mL Folate (4.40-31.00) ng/mL TSH (0.465-4.680) mIU/L Urine Color Urine Appearance (Clear) Urine pH (5.0-8.0) Ur Specific [place] (1.001-1.035) Urine Protein (Negative) Urine Glucose (UA) (Negative) Urine Ketones (Negative) Urine Blood (Negative) Urine Nitrite (Negative) Urine Bilirubin (Negative) Urine Urobilinogen (<2.0) mg/dL Ur Leukocyte Esterase (Negative) 07/06/22 07/06/22 07/06/22 Range/Units 18:37 18:37 18:37 WBC (3.8-10.6) k/uL RBC (3.80-5.40) m/uL Hgb (11.4-16.0) gm/dL Hct (34.0-46.0) % MCV (80.0-100.0) fL MCH (25.0-35.0) pg MCHC (31.0-37.0) g/dL RDW (11.5-15.5) % Plt Count (150-450) k/uL MPV Neutrophils % % Lymphocytes % % Monocytes % % Eosinophils % % Basophils % % Neutrophils # (1.3-7.7) k/uL Lymphocytes # (1.0-4.8) k/uL Monocytes # (0-1.0) k/uL Eosinophils # (0-0.7) k/uL Basophils # (0-0.2) k/uL Hypochromasia Poikilocytosis Anisocytosis Microcytosis PT (9.0-12.0) sec INR (<1.2) APTT (22.0-30.0) sec Sodium (137-145) mmol/L Potassium (3.5-5.1) mmol/L Chloride (98-107) mmol/L Carbon Dioxide (22-30) mmol/L Anion Gap mmol/L BUN (7-17) mg/dL Creatinine (0.52-1.04) mg/dL Est GFR (CKD-EPI)AfAm (>60 ml/min/1.73 sqM) Est GFR (CKD-EPI)NonAf (>60 ml/min/1.73 sqM) Glucose (74-99) mg/dL POC Glucose (mg/dL) (70-110) mg/dL POC Glu Maintenance Fitter ID Estimated Ave Glu mg/dL 116 Hemoglobin A1c 5.7 (0.0-6.0) % Calcium (8.4-10.2) mg/dL Total Bilirubin (0.2-1.3) mg/dL AST (14-36) U/L ALT (4-34) U/L Alkaline Phosphatase (38-126) U/L Troponin I 0.019 (0.000-0.034) ng/mL Total Protein (6.3-8.2) g/dL Albumin (3.5-5.0) g/dL Triglycerides (0.00-149.00) mg/dL Cholesterol (0.00-200.00) mg/dL LDL Cholesterol, Calc (0.0-131.0) mg/dL VLDL Cholesterol, Calc (5.00-40.00) mg/dL HDL Cholesterol (40.00-60.00) mg/dL Cholesterol/HDL Ratio Ratio Vitamin B12 (200.0-944.0) pg/mL Folate (4.40-31.00) ng/mL TSH 2.860 (0.465-4.680) mIU/L Urine Color Urine Appearance (Clear) Urine pH (5.0-8.0) Ur Specific [place] (1.001-1.035) Urine Protein (Negative) Urine Glucose (UA) (Negative) Urine Ketones (Negative) Urine Blood (Negative) Urine Nitrite (Negative) Urine Bilirubin (Negative) Urine Urobilinogen (<2.0) mg/dL Ur Leukocyte Esterase (Negative) 07/06/22 07/06/22 07/06/22 Range/Units 18:37 18:37 19:11 WBC (3.8-10.6) k/uL RBC (3.80-5.40) m/uL Hgb (11.4-16.0) gm/dL Hct (34.0-46.0) % MCV (80.0-100.0) fL MCH (25.0-35.0) pg MCHC (31.0-37.0) g/dL RDW (11.5-15.5) % Plt Count (150-450) k/uL MPV Neutrophils % % Lymphocytes % % Monocytes % % Eosinophils % % Basophils % % Neutrophils # (1.3-7.7) k/uL Lymphocytes # (1.0-4.8) k/uL Monocytes # (0-1.0) k/uL Eosinophils # (0-0.7) k/uL Basophils # (0-0.2) k/uL Hypochromasia Poikilocytosis Anisocytosis Microcytosis PT (9.0-12.0) sec INR (<1.2) APTT (22.0-30.0) sec Sodium (137-145) mmol/L Potassium (3.5-5.1) mmol/L Chloride (98-107) mmol/L Carbon Dioxide (22-30) mmol/L Anion Gap mmol/L BUN (7-17) mg/dL Creatinine (0.52-1.04) mg/dL Est GFR (CKD-EPI)AfAm (>60 ml/min/1.73 sqM) Est GFR (CKD-EPI)NonAf (>60 ml/min/1.73 sqM) Glucose (74-99) mg/dL POC Glucose (mg/dL) (70-110) mg/dL POC Glu Maintenance Fitter ID Estimated Ave Glu mg/dL Hemoglobin A1c (0.0-6.0) % Calcium (8.4-10.2) mg/dL Total Bilirubin (0.2-1.3) mg/dL AST (14-36) U/L ALT (4-34) U/L Alkaline Phosphatase (38-126) U/L Troponin I (0.000-0.034) ng/mL Total Protein (6.3-8.2) g/dL Albumin (3.5-5.0) g/dL Triglycerides (0.00-149.00) mg/dL Cholesterol (0.00-200.00) mg/dL LDL Cholesterol, Calc (0.0-131.0) mg/dL VLDL Cholesterol, Calc (5.00-40.00) mg/dL HDL Cholesterol (40.00-60.00) mg/dL Cholesterol/HDL Ratio Ratio Vitamin B12 395.0 (200.0-944.0) pg/mL Folate 9.10 (4.40-31.00) ng/mL TSH (0.465-4.680) mIU/L Urine Color Light Yellow Urine Appearance Clear (Clear) Urine pH 5.0 (5.0-8.0) Ur Specific [place] 1.011 (1.001-1.035) Urine Protein Negative (Negative) Urine Glucose (UA) Negative (Negative) Urine Ketones Negative (Negative) Urine Blood Negative (Negative) Urine Nitrite Negative (Negative) Urine Bilirubin Negative (Negative) Urine Urobilinogen <2.0 (<2.0) mg/dL Ur Leukocyte Esterase Negative (Negative) 07/07/22 07/07/22 07/08/22 Range/Units 16:47 19:58 06:11 WBC (3.8-10.6) k/uL RBC (3.80-5.40) m/uL Hgb (11.4-16.0) gm/dL Hct (34.0-46.0) % MCV (80.0-100.0) fL MCH (25.0-35.0) pg MCHC (31.0-37.0) g/dL RDW (11.5-15.5) % Plt Count (150-450) k/uL MPV Neutrophils % % Lymphocytes % % Monocytes % % Eosinophils % % Basophils % % Neutrophils # (1.3-7.7) k/uL Lymphocytes # (1.0-4.8) k/uL Monocytes # (0-1.0) k/uL Eosinophils # (0-0.7) k/uL Basophils # (0-0.2) k/uL Hypochromasia Poikilocytosis Anisocytosis Microcytosis PT (9.0-12.0) sec INR (<1.2) APTT (22.0-30.0) sec Sodium (137-145) mmol/L Potassium (3.5-5.1) mmol/L Chloride (98-107) mmol/L Carbon Dioxide (22-30) mmol/L Anion Gap mmol/L BUN (7-17) mg/dL Creatinine (0.52-1.04) mg/dL Est GFR (CKD-EPI)AfAm (>60 ml/min/1.73 sqM) Est GFR (CKD-EPI)NonAf (>60 ml/min/1.73 sqM) Glucose (74-99) mg/dL POC Glucose (mg/dL) 201 H 130 H 127 H (70-110) mg/dL POC Glu Maintenance Fitter Monica Montez Kylee Garcia, Jasmine Estimated Ave Glu mg/dL Hemoglobin A1c (0.0-6.0) % Calcium (8.4-10.2) mg/dL Total Bilirubin (0.2-1.3) mg/dL AST (14-36) U/L ALT (4-34) U/L Alkaline Phosphatase (38-126) U/L Troponin I (0.000-0.034) ng/mL Total Protein (6.3-8.2) g/dL Albumin (3.5-5.0) g/dL Triglycerides (0.00-149.00) mg/dL Cholesterol (0.00-200.00) mg/dL LDL Cholesterol, Calc (0.0-131.0) mg/dL VLDL Cholesterol, Calc (5.00-40.00) mg/dL HDL Cholesterol (40.00-60.00) mg/dL Cholesterol/HDL Ratio Ratio Vitamin B12 (200.0-944.0) pg/mL Folate (4.40-31.00) ng/mL TSH (0.465-4.680) mIU/L Urine Color Urine Appearance (Clear) Urine pH (5.0-8.0) Ur Specific [place] (1.001-1.035) Urine Protein (Negative) Urine Glucose (UA) (Negative) Urine Ketones (Negative) Urine Blood (Negative) Urine Nitrite (Negative) Urine Bilirubin (Negative) Urine Urobilinogen (<2.0) mg/dL Ur Leukocyte Esterase (Negative) 07/08/22 07/08/22 07/08/22 Range/Units 07:50 07:50 07:50 WBC 10.0 (3.8-10.6) k/uL RBC 5.15 (3.80-5.40) m/uL Hgb 10.8 L (11.4-16.0) gm/dL Hct 36.2 (34.0-46.0) % MCV 70.3 L (80.0-100.0) fL MCH 21.0 L (25.0-35.0) pg MCHC 29.9 L (31.0-37.0) g/dL RDW 17.4 H (11.5-15.5) % Plt Count 184 (150-450) k/uL MPV 7.5 Neutrophils % 73 % Lymphocytes % 17 % Monocytes % 5 % Eosinophils % 3 % Basophils % 1 % Neutrophils # 7.3 (1.3-7.7) k/uL Lymphocytes # 1.7 (1.0-4.8) k/uL Monocytes # 0.5 (0-1.0) k/uL Eosinophils # 0.3 (0-0.7) k/uL Basophils # 0.1 (0-0.2) k/uL Hypochromasia Moderate Poikilocytosis Slight Anisocytosis Slight Microcytosis Marked PT (9.0-12.0) sec INR (<1.2) APTT (22.0-30.0) sec Sodium 139 (137-145) mmol/L Potassium 4.6 (3.5-5.1) mmol/L Chloride 110 H (98-107) mmol/L Carbon Dioxide 21 L (22-30) mmol/L Anion Gap 8 mmol/L BUN 34 H (7-17) mg/dL Creatinine 1.10 H (0.52-1.04) mg/dL Est GFR (CKD-EPI)AfAm 53 (>60 ml/min/1.73 sqM) Est GFR (CKD-EPI)NonAf 46 (>60 ml/min/1.73 sqM) Glucose 155 H (74-99) mg/dL POC Glucose (mg/dL) (70-110) mg/dL POC Glu Maintenance Fitter ID Estimated Ave Glu mg/dL Hemoglobin A1c (0.0-6.0) % Calcium 8.8 (8.4-10.2) mg/dL Total Bilirubin (0.2-1.3) mg/dL AST (14-36) U/L ALT (4-34) U/L Alkaline Phosphatase (38-126) U/L Troponin I (0.000-0.034) ng/mL Total Protein (6.3-8.2) g/dL Albumin (3.5-5.0) g/dL Triglycerides 104.00 (0.00-149.00) mg/dL Cholesterol 114.00 (0.00-200.00) mg/dL LDL Cholesterol, Calc 51.9 (0.0-131.0) mg/dL VLDL Cholesterol, Calc 20.80 (5.00-40.00) mg/dL HDL Cholesterol 41.30 (40.00-60.00) mg/dL Cholesterol/HDL Ratio 2.76 Ratio Vitamin B12 (200.0-944.0) pg/mL Folate (4.40-31.00) ng/mL TSH (0.465-4.680) mIU/L Urine Color Urine Appearance (Clear) Urine pH (5.0-8.0) Ur Specific [place] (1.001-1.035) Urine Protein (Negative) Urine Glucose (UA) (Negative) Urine Ketones (Negative) Urine Blood (Negative) Urine Nitrite (Negative) Urine Bilirubin (Negative) Urine Urobilinogen (<2.0) mg/dL Ur Leukocyte Esterase (Negative) 07/08/22 Range/Units 11:53 WBC (3.8-10.6) k/uL RBC (3.80-5.40) m/uL Hgb (11.4-16.0) gm/dL Hct (34.0-46.0) % MCV (80.0-100.0) fL MCH (25.0-35.0) pg MCHC (31.0-37.0) g/dL RDW (11.5-15.5) % Plt Count (150-450) k/uL MPV Neutrophils % % Lymphocytes % % Monocytes % % Eosinophils % % Basophils % % Neutrophils # (1.3-7.7) k/uL Lymphocytes # (1.0-4.8) k/uL Monocytes # (0-1.0) k/uL Eosinophils # (0-0.7) k/uL Basophils # (0-0.2) k/uL Hypochromasia Poikilocytosis Anisocytosis Microcytosis PT (9.0-12.0) sec INR (<1.2) APTT (22.0-30.0) sec Sodium (137-145) mmol/L Potassium (3.5-5.1) mmol/L Chloride (98-107) mmol/L Carbon Dioxide (22-30) mmol/L Anion Gap mmol/L BUN (7-17) mg/dL Creatinine (0.52-1.04) mg/dL Est GFR (CKD-EPI)AfAm (>60 ml/min/1.73 sqM) Est GFR (CKD-EPI)NonAf (>60 ml/min/1.73 sqM) Glucose (74-99) mg/dL POC Glucose (mg/dL) 149 H (70-110) mg/dL POC Glu Maintenance Fitter ID Monica Bejarano Estimated Ave Glu mg/dL Hemoglobin A1c (0.0-6.0) % Calcium (8.4-10.2) mg/dL Total Bilirubin (0.2-1.3) mg/dL AST (14-36) U/L ALT (4-34) U/L Alkaline Phosphatase (38-126) U/L Troponin I (0.000-0.034) ng/mL Total Protein (6.3-8.2) g/dL Albumin (3.5-5.0) g/dL Triglycerides (0.00-149.00) mg/dL Cholesterol (0.00-200.00) mg/dL LDL Cholesterol, Calc (0.0-131.0) mg/dL VLDL Cholesterol, Calc (5.00-40.00) mg/dL HDL Cholesterol (40.00-60.00) mg/dL Cholesterol/HDL Ratio Ratio Vitamin B12 (200.0-944.0) pg/mL Folate (4.40-31.00) ng/mL TSH (0.465-4.680) mIU/L Urine Color Urine Appearance (Clear) Urine pH (5.0-8.0) Ur Specific [place] (1.001-1.035) Urine Protein (Negative) Urine Glucose (UA) (Negative) Urine Ketones (Negative) Urine Blood (Negative) Urine Nitrite (Negative) Urine Bilirubin (Negative) Urine Urobilinogen (<2.0) mg/dL Ur Leukocyte Esterase (Negative) - Thrombolytic Inclusion/Exclusion Thrombolytic Exclusion Criteria: Onset of Symptoms Unknown - Medical Decision Making Patient is a 82-year-old woman brought to have evaluation of slurred speech and left facial droop. We are not able to establish the exact onset of her sym ptoms, therefore patient not TPA candidate. Patient will be admitted to have further evaluation as well as neurology consultation. The patient's speech here is clear though she does have some mild residual left sided facial droop. Was pt. sent in by a medical professional or institution? @ -[No Did you speak to anyone other than the patient for history? @ -[Multiple family members Did you review nursing and triage notes? @ -[agree Were old charts reviewed? @ -[No] Differential Diagnosis? @ -[Differential Weakness: Hypoglycemia, shock, sepsis, hyponatremia, anemia, infection, MO, ETOH, adverse medicine reaction, overdose, stroke, this is not meant to be an all-inclusive list. EKG interpreted by me (3pts min.)? @ -[See chart X-rays interpreted by me (1pt min.)? @ -[See chart CT interpreted by me (1pt min.)? @ -[See chart U/S interpreted by me (1pt. min.)? @ -[none] What testing was considered but not performed? (CT, X-rays, U/S, labs)? Why? @ [None What meds were considered but not given? Why? @ -[TPA is considered, but we were unable to definitively identify symptom onset Did you discuss the management of the patient with other professionals? @ -Admitting physician Did you reconcile home meds? @ -Yes Was smoking cessation discussed for >3mins.? @ -[none] Was critical care preformed (if so, how long)? @ -[none] Were there social determinants of health that impacted care today? How? (Homelessness, low income, unemployed, alcoholism, drug addiction, transportation, low edu. Level, literacy, decrease access to med. care, half-way, rehab)? @ -[No Was there de-escalation of care discussed even if they declined? (Discuss DNR or withdrawal of care, Hospice)? @ -[No What co-morbidities impacted this encounter? (DM, HTN, Smoking, COPD, CAD, Cancer, CVA, Hep., AIDS, mental health diagnosis, sleep apnea, morbid obesity)? @ -[Hypertension Was patient admitted / discharged? @ -[Admitted Undiagnosed new problem with uncertain prognosis? @ -[none] Drug Therapy requiring intensive monitoring for toxicity (Heparin, Nitro, Insulin, Cardizem)? @ -[none] Were any procedures done? @ -[none] Diagnosis/symptom? @ -[1. Left facial weakness, acute ischemic stroke versus TIA 2. Right parotid mass, chronic, uncomplicated Acute, or Chronic, or Acute on Chronic? @ -[Acute Uncomplicated (without systemic symptoms) or Complicated (systemic symptoms)? @ -[default] Side effects of treatment? @ -[none] Exacerbation, Progression, or Severe Exacerbation] @ -[no] Poses a threat to life or bodily function? @ -[Yes - Radiology Data I interpreted the chest x-ray as not showing an acute infiltrate. I interpreted the brain CT as not showing acute hemorrhagic stroke - EKG Data -: EKG Interpreted by Me EKG shows normal: sinus rhythm, axis (Normal), intervals (First-degree AV block.), QRS complexes (Normal) Rate: bradycardia (Rate 57 bpm) Past Medical History Past Medical History: Hypertension Additional Past Medical History / Comment(s): cyst on right side of face History of Any Multi-Drug Resistant Organisms: None Reported Past Surgical History: Heart Catheterization With Stent, Tonsillectomy Past Psychological History: No Psychological Hx Reported Smoking Status: Former smoker Past Alcohol Use History: Occasional Past Drug Use History: None Reported - Past Family History Mother Additional Family Medical History / Comment(s): multiple family members with heart disease Course Vital Signs 07/06/22 07/06/22 07/07/22 17:16 19:06 01:22 Temperature 98.3 F Pulse Rate 62 74 Pulse Rate [ Pulse Oximetery ] Respiratory 18 18 15 Rate Blood Pressure 194/63 149/58 149/85 Blood Pressure [Right Arm] O2 Sat by Pulse 97 95 99 Oximetry 07/07/22 07/07/22 07/07/22 05:45 07:20 08:00 Temperature 98 F Pulse Rate 68 Pulse Rate [ 70 Pulse Oximetery ] Respiratory 15 18 Rate Blood Pressure 133/81 Blood Pressure 179/82 [Right Arm] O2 Sat by Pulse 98 98 97 Oximetry 07/07/22 12:50 Temperature 98 F Pulse Rate Pulse Rate [ 65 Pulse Oximetery ] Respiratory 18 Rate Blood Pressure Blood Pressure 149/68 [Right Arm] O2 Sat by Pulse 97 Oximetry Critical Care Time Critical Care Time: Yes (30 minutes) Disposition Clinical Impression: Cerebrovascular accident (CVA) Disposition: ADMITTED IP TO THIS [facility] Condition: Fair Is patient prescribed a controlled substance at d/c from ED?: No
[2022-07-06] MEDS: SODIUM CHLORIDE 0.9% 1,000 ML IV SCH (22:59)
[2022-07-07] MEDS ORDERED: FAMOTIDINE 20 MG TAB PO SCH (09:00)
[2022-07-07] MEDS: ASPIRIN 81 MG PO SCH (09:02)
[2022-07-07] MEDS: METOPROLOL TARTRATE 50 MG TAB PO SCH (09:02)
[2022-07-07] MEDS: LOSARTAN 25 MG TAB PO SCH ×2 (09:02→19:48)
[2022-07-07] MEDS: CLOPIDOGREL 75 MG TAB PO SCH (09:02)
--- NOTE | 2022-07-07 12:51 | US ---
EXAMINATION TYPE: US carotid duplex BILAT DATE OF EXAM: 07/07/2022 COMPARISON: NONE CLINICAL HISTORY: TIA. TIA TECHNIQUE: Carotid duplex ultrasound examination. Indirect Doppler criteria was utilized. FINDINGS: EXAM MEASUREMENTS: RIGHT: Peak Systolic Velocity (PSV) cm/sec ----- Right CCA: 55.1 ----- Right ICA: 85.7 ----- Right ECA: 275.1 ICA/CCA ratio: 1.6 RIGHT: End Diastole cm/sec ----- Right CCA: 10.0 ----- Right ICA: 8.6 ----- Right ECA: 0 LEFT: Peak Systolic Velocity (PSV) cm/sec ----- Left CCA: 76.9 ----- Left ICA: 88.6 ----- Left ECA: 270.5 ICA/CCA ratio: 1.2 LEFT: End Diastole cm/sec ----- Left CCA: 15.9 ----- Left ICA: 23.1 ----- Left ECA: 0 VERTEBRALS (direction of flow): Right Vertebral: Antegrade Left Vertebral: Antegrade Rhythm: Normal [employer] NOTES: Elevated bilateral ECA No significant stenosis seen IMPRESSION: 1. No clinically significant stenosis of the bilateral internal carotid arteries. 2. Moderate stenosis suggested of the bilateral external carotid arteries. Criteria for Assigning % of Stenosis / Diameter reduction (Estimation based on the indirect measurements of the internal carotid artery velocities (ICA PSV). 1. Normal (no stenosis)=ICA PSV < 125 cm/s: ratio < 2.0: ICA EDV<40 cm/s. 2. Less than 50% stenosis=ICA PSV < 125 cm/s: ratio < 2.0: ICA EDV<40 cm/s. 3. 50 to 69% stenosis=ICA PSV of 125 to 230 cm/s: ration 2.0 ? 4.0: ICA EDV 40-100 cm/s. 4. Greater than 70% stenosis to near occlusion= ICA PSV > 230 cm/s: ratio > 4.0: ICA EDV > 100 cm/s. 5. Near occlusion= ICA PSV velocities may be low or undetectable: variable ratio and ICA EDV. 6. Total occlusion=unable to detect flow.
--- NOTE | 2022-07-07 13:59 | P.HPIM ---
History of Present Illness H&P Date: 07/07/22 This is an 82-year-old female follows with Dr. Sean Medina, with medical history of hypertension, [place] in 2016 with 2 stents, and recent Cardiac catheterization with 2 stents on 06/25/22, former smoker. Presents to the hospital with concern for possible stroke. Patient's family member had reported noticing some slurred speech and some left-sided facial droop yesterday evening and recommended patient to come to the hospital for evaluation. Family also reports patient having some acute confusion. Patient denies any symptoms and states that she was eating a sandwich at the time. She has no teeth and does not wear dentures. Reports no prior history of stroke. She reports having elevated blood pressure in the last month that has been difficult to control. She was supposed to have a left total knee on 07/03/22 however as part of her cardiac clearance for surgery she had failed stress test and underwent PCI about 2 weeks ago and had 2 stents placed. She was started on aspirin and plavix. Echocardiogram at that time showing EF of 50 to 55%, mild pulmonary hypertension, moderate MR, Mild TR. She denies headache, dizziness lightheadedness, denies vision changes, no focal weakness. Denies difficulty swallowing, patient feels she does not have slurred speech. She does have a large lump on her right face for which she is following with Derm for next month. 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 Chest x-ray is negative for acute findings. Her EKG is showing atrial bradycardia with a heart rate of 57. She is resumed on her home medications including aspirin 81 mg as well as Plavix 75 mg daily and Lipitor 80 mg at bedtime. She does present with a white count of 12.4, hgb 11.1. Kidney function is mildly elevated with BUN of 33, creatinine of 1.06. Troponin negative. Urinalysis negative for infection. Neurology is consulted for further evaluation. REVIEW OF SYSTEMS: CONSTITUTIONAL: No fever, no malaise, no fatigue. HEENT: No recent visual problems or hearing problems. Denied any sore throat. CARDIOVASCULAR: No chest pain, orthopnea, PND, no palpitations, no syncope. PULMONARY: No shortness of breath, no cough, no hemoptysis. GASTROINTESTINAL: No diarrhea, no nausea, no vomiting, no abdominal pain. NEUROLOGICAL: No headaches, no weakness, no numbness. HEMATOLOGICAL: Denies any bleeding or petechiae. GENITOURINARY: Denies any burning micturition, frequency, or urgency. MUSCULOSKELETAL/RHEUMATOLOGICAL: Denies any joint pain, swelling, or any muscle pain. ENDOCRINE: Denies any polyuria or polydipsia. The rest of the 14-point review of systems is negative. PHYSICAL EXAMINATION: GENERAL: The patient is alert and oriented x3, not in any acute distress. Well developed, well nourished. HEENT: Pupils are round and equally reacting to light. EOMI. No scleral icterus. No conjunctival pallor. Normocephalic, atraumatic. No pharyngeal erythema. No thyromegaly. CARDIOVASCULAR: S1 and S2 present. No murmurs, rubs, or gallops. PULMONARY: Chest is clear to auscultation, no wheezing or crackles. ABDOMEN: Soft, nontender, nondistended, normoactive bowel sounds. No palpable organomegaly. MUSCULOSKELETAL: No joint swelling or deformity. EXTREMITIES: No cyanosis, clubbing, or pedal edema. NEUROLOGICAL: slight left facial droop. No focal weakness, no ataxia. Alert x 3. SKIN: No rashes. Large lump on right face, soft to palpate. Assessment and Plan Assessment Possible slurred speech with left sided facial droop work up for TIA vs. Acute stroke Brain CT showing bilateral old lacunar infarct in the internal capsule Leukocytosis Anemia, microcytic Mild acute kidney injury likely prerenal Recent cardiac catheterization 06/25/22 with stenting to the left circumflex and discharged on aspirin/plavix/lipitor at that time Hypertension Former smoker GI prophylaxis DVT prophylaxsis Full Code Plan Cardiac telemetry monitoring Neurology consultation Recent echocardiogram reviewed Resume appropriate home medications Pending neurology consultation and further recommendations PT/OT/Speech therapy Possible DC in the next 24 to 48 hours The impression and plan of care has been dictated by Mariya Paris Nurse Practitioner as directed. Dr. Ruben MD I have performed a history and physical examination and medical decision making of this patient, discussed the same with the dictator, and agree with the dictators assessment and plan as written, documented as a scribe. Based on total visit time, I have performed more than 50% of this visit. Past Medical History Past Medical History: Hypertension Additional Past Medical History / Comment(s): cyst on right side of face History of Any Multi-Drug Resistant Organisms: None Reported Past Surgical History: Heart Catheterization With Stent, Tonsillectomy Date of Last Stent Placement:: 06/26/2022 Past Psychological History: No Psychological Hx Reported Smoking Status: Former smoker Past Alcohol Use History: Occasional Past Drug Use History: None Reported - Past Family History Mother Additional Family Medical History / Comment(s): multiple family members with heart disease Medications and Allergies Home Medications Medication Instructions Recorded Confirmed Type Furosemide [Lasix] 20 mg PO DAILY 06/24/22 07/06/22 History Losartan Potassium [Cozaar] 25 mg PO BID 06/24/22 07/06/22 History Metoprolol Tartrate 50 mg PO DAILY 06/24/22 07/06/22 History Aspirin 81 mg PO DAILY 06/26/22 07/06/22 History Atorvastatin Calcium [Lipitor] 80 mg PO HS 06/26/22 07/06/22 History Clopidogrel [Plavix] 75 mg PO DAILY 06/26/22 07/06/22 History Nitroglycerin Sl Tabs [Nitrostat] 0.4 mg SL DAILY PRN 06/26/22 07/06/22 History Metoprolol Tartrate 25 mg PO HS 07/06/22 07/06/22 History Allergies Allergy/AdvReac Type Severity Reaction Status Date / Time codeine AdvReac timbokey Verified 07/06/22 20:11 Physical Exam Vitals: Vital Signs Temp Pulse Resp BP Pulse Ox 07/07/22 07:20 98 07/07/22 05:45 68 15 133/81 98 07/07/22 01:22 74 15 149/85 99 07/06/22 19:06 18 149/58 95 07/06/22 17:16 98.3 F 62 18 194/63 97 Intake and Output 07/06/22 07/07/22 07/07/22 22:59 06:59 14:59 Other: Weight 90.718 kg Results CBC & Chem 7: 07/06/22 18:37 07/06/22 18:37 Labs: Abnormal Lab Results - Last 24 Hours (Table) 07/06/22 07/06/22 07/06/22 Range/Units 18:37 18:37 18:37 WBC 12.4 H (3.8-10.6) k/uL Hgb 11.1 L (11.4-16.0) gm/dL MCV 69.0 L (80.0-100.0) fL MCH 21.5 L (25.0-35.0) pg RDW 17.3 H (11.5-15.5) % Neutrophils # 8.8 H (1.3-7.7) k/uL APTT 18.2 L (22.0-30.0) sec Chloride 108 H (98-107) mmol/L BUN 33 H (7-17) mg/dL Creatinine 1.06 H (0.52-1.04) mg/dL Assessment and Plan Time with Patient: Less than 30
--- NOTE | 2022-07-07 16:32 | P.CNNES ---
History of Present Illness Consult date: 07/07/22 Requesting physician: Giorgi Rice Reason for Consult: TIA versus ischemic stroke History of Present Illness: Patient is a 82-year-old right-handed female with history of hypertension, CAD, X tobacco use, came to the hospital by ambulance yesterday at 5:15 PM for possible stroke symptoms. Patient's daughter, granddaughter were present, who also provided the history. Patient had underwent cardiac stenting 2 on , and was started on Plavix 75 mg, and her previous aspirin was decreased from 325 down to 81 mg. Apparently patient was doing fine on Wednesday and yesterday (Wednesday) morning. The last known well was around 12:30 PM, when patient's daughter has spoken to her. At 2:30 PM yesterday, patient's granddaughter noticed that she was slurring her words. She did not look right. She called her mom (patient's daughter), who came over and noticed that the left side of the mouth was drooping. Her speech was not like hers and she was staring in space and was quiet. She was "babying her left arm". They waited for an hour, but as the symptoms didn't improve, called the ambulance and patient was brought to the hospital. Patient was not a candidate for TPA, as she came outside the window for TPA. As per EMS flow sheet, when they arrived, found patient sitting upright. Patient was alert and oriented, answering all questions appropriately. Family mentioned that patient appears with facial droop and slurred speech. Stroke assessment completed with no deficits found. Patient denied any head, neck or back or chest pain. No difficulty breathing, loss of consciousness or nausea vomiting. No recent trauma or illness. Vital signs the scene blood pressure 171/84, pulse rate 65, respiration 18, saturation 97% and blood sugar 154. Chest x-ray revealed borderline cardiomegaly, no acute cardiomegaly disease. EKG revealed ectopic atrial bradycardia. Abnormal rhythm. CT head revealed cerebral atrophy. 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 No acute abnormality. I personally reviewed CT head, agree with the findings. Evidence of old infarct in the anterior limb of the right internal capsule. Visualized paranasal sinuses are clear. Today patient's speech is better, her face is better, but she still slightly slurring and still has facial droop. She is more alert and talking like herself. She has gone to the bathroom. Patient's daughter has noticed that that she has been having loss of control of urine which is new for her. She has been going to bathroom and appears steady. She denies any headache. Patient has history of hypertension, coronary artery disease. She had a massive CO on 04/01/2006 after which she underwent 2 stent placement. She was on aspirin and Plavix for some time, but then patient stopped taking Plavix and remained on full aspirin a day. Denies any previous history of clinical strokes or TIA. Patient has smoked 2 packs per day since age 14 or 15, until she quit after MRI in 2005. No diabetes. Patient does have a cyst over the right parotid region, for which patient has appointment with tapeman on 07/21/2022. Home medications include Lasix 20 mg, losartan 25 mg twice a day, metoprolol, Lipitor 80 mg, aspirin 81 mg, Plavix 75 mg, nitroglycerin and metoprolol. Review of Systems Constitutional: Denies chills, Denies fever Eyes: denies blurred vision, denies pain Ears: bilateral: decreased hearing, deny: ear discharge Ears, nose, mouth and throat: Denies headache, Denies sore throat Cardiovascular: Denies chest pain, Denies shortness of breath Respiratory: Denies cough Gastrointestinal: Denies abdominal pain, Denies diarrhea, Denies nausea, Denies vomiting Genitourinary: Reports urge incontinence, Denies flank pain, Denies hematuria Musculoskeletal: Denies myalgias Integumentary: Denies pruritus, Denies rash Neurological: Reports as per HPI Psychiatric: Reports memory loss, Denies anxiety, Denies depression Endocrine: Denies fatigue, Denies weight change Past Medical History Past Medical History: Hypertension Additional Past Medical History / Comment(s): cyst on right side of face History of Any Multi-Drug Resistant Organisms: None Reported Past Surgical History: Heart Catheterization With Stent, Tonsillectomy Date of Last Stent Placement:: 06/26/2022 Past Psychological History: No Psychological Hx Reported Smoking Status: Former smoker Past Alcohol Use History: Occasional Past Drug Use History: None Reported - Past Family History Mother Additional Family Medical History / Comment(s): multiple family members with heart disease Medications and Allergies Home Medications Medication Instructions Recorded Confirmed Type Furosemide [Lasix] 20 mg PO DAILY 06/24/22 07/06/22 History Losartan Potassium [Cozaar] 25 mg PO BID 06/24/22 07/06/22 History Metoprolol Tartrate 50 mg PO DAILY 06/24/22 07/06/22 History Aspirin 81 mg PO DAILY 06/26/22 07/06/22 History Atorvastatin Calcium [Lipitor] 80 mg PO HS 06/26/22 07/06/22 History Clopidogrel [Plavix] 75 mg PO DAILY 06/26/22 07/06/22 History Nitroglycerin Sl Tabs [Nitrostat] 0.4 mg SL DAILY PRN 06/26/22 07/06/22 History Metoprolol Tartrate 25 mg PO HS 07/06/22 07/06/22 History Allergies Allergy/AdvReac Type Severity Reaction Status Date / Time codeine AdvReac shakey Verified 07/06/22 20:11 Physical Examination - Vital Signs Vital Signs: Vital Signs Temp Pulse Pulse Resp BP BP Pulse Ox 07/07/22 08:00 98 F 70 18 179/82 97 07/07/22 07:20 98 07/07/22 05:45 68 15 133/81 98 07/07/22 01:22 74 15 149/85 99 07/06/22 19:06 18 149/58 95 07/06/22 17:16 98.3 F 62 18 194/63 97 Intake and Output 07/06/22 07/07/22 07/07/22 22:59 06:59 14:59 Intake Total 120 Balance 120 Intake: Oral 120 Other: Weight 90.718 kg Patient is an elderly female, in no acute distress. She is slightly somnolent. Patient is alert awake oriented to time place and person. Patient knows it is 07/07/2022 and that she is in [facility], and her name and her age. Speech is mildly dysarthric and language functions are normal. Patient can name and repeat very well. Attention, concentration and fund of knowledge is adequate. Detail testing deferred. On cranial nerve examination, pupils are equal, round and reacting to light, visual boone are full on confrontation, with no neglect on double simultaneous stimulation. Extraocular muscles are intact with no nystagmus. Patient has left facial asymmetry. Her tongue protrudes to the midline. Palatal elevation and sensation normal, hearing is mildly decreased and shoulder shrug normal, facial sensation normal. On muscle strength testing, there is mild left pronator drift and the strength is normal in arms and legs distally and proximally, except left hip flexion, which is 5-. Deep tendon reflexes are symmetric 2 at the biceps, 2 brachioradialis, trace at the knees and plantars are downgoing bilaterally. Sensory to touch is equal with no neglect on double simultaneous stimulation. Cerebellar function showed no ataxia for [id number] testing. No dysdiadochokinesia. No ataxia for [id number] testing on either side. Tone and bulk of muscles normal. Rapid finger tapping normal. Gait deferred.. On general examination, there is no carotid bruit or murmur, S1-S2 audible. Chest is clear on consultation. Abdomen is soft nontender. No organomegaly, bowel sounds present. Peripheral pulses are present. No edema. Results - Laboratory Findings CBC and BMP: 07/06/22 18:37 07/06/22 18:37 Abnormal Lab Findings: Abnormal Labs 07/06/22 07/06/22 07/06/22 18:37 18:37 18:37 WBC 12.4 H Hgb 11.1 L MCV 69.0 L MCH 21.5 L RDW 17.3 H Neutrophils # 8.8 H APTT 18.2 L Chloride 108 H BUN 33 H Creatinine 1.06 H Assessment and Plan Assessment: * Possible CVA manifesting with slurred speech, left facial droop and very mild left arm weakness. * Hypertension * Coronary artery disease * X tobacco use Plan: * Check carotid Doppler * MRI brain, evaluate for an acute stroke * 2-D echo from 06/26/2022 revealed left ventricular systolic function borderline normal with moderate hypertrophy. Moderate mitral annular as opacification with moderate MR. Mild TR with mild pulmonary hypertension. * Patient to be resumed on aspirin 81 mg and Plavix 75 mg. Also on Lipitor 80 mg daily. * Fasting lipid panel, hemoglobin A1c, B12, folate. * EEG. * Telemetry monitoring * DVT prophylaxis: Patient started on heparin 5000 units subcu every 12 hours. * Neurology will follow. Thank you for the consult.
[2022-07-07 16:59] LABS: Glucose,Whole Blood 201 mg/dL (70-110)
[2022-07-07] MEDS: ATORVASTATIN 80 MG TAB PO SCH (19:48)
[2022-07-07] MEDS: HEPARIN SODIUM,PORCINE/PF 5,000 UNIT/0.5 ML SYRINGE SQ SCH (19:48)
[2022-07-07] MEDS: METOPROLOL TARTRATE 25 MG TAB PO SCH (19:48)
[2022-07-07 20:00] LABS: Glucose,Whole Blood 130 mg/dL (70-110)
[2022-07-07] MEDS: SODIUM CHLORIDE 0.9% 1,000 ML IV SCH (22:23)
[2022-07-08 06:12] LABS: Glucose,Whole Blood 127 mg/dL (70-110)
[2022-07-08 09:29] LABS: Anisocytosis Slight; Basophils # (A) 0.1 k/uL (0-0.2); Basophils % (A) 1 %; Eosinophils # (A) 0.3 k/uL (0-0.7); Eosinophils % (A) 3 %; HCT 36.2 % (34.0-46.0); HGB 10.8 gm/dL (11.4-16.0); Hypochromasia Moderate; Lymphocytes # (A) 1.7 k/uL (1.0-4.8); Lymphocytes % (A) 17 %; MCHC 29.9 g/dL (31.0-37.0); MCV 70.3 fL (80.0-100.0); Mean Platelet Volume 7.5; Microcytosis Marked; Monocytes # (A) 0.5 k/uL (0-1.0); Monocytes % (A) 5 %; Neutrophils # (A) 7.3 k/uL (1.3-7.7); Neutrophils % (A) 73 %; Platelet Count 184 k/uL (150-450); Poikilocytosis Slight; RBC 5.15 m/uL (3.80-5.40); RDW 17.4 % (11.5-15.5)
[2022-07-08 10:01] LABS: Calcium 8.8 mg/dL (8.4-10.2); Potassium 4.6 mmol/L (3.5-5.1)
--- NOTE | 2022-07-08 10:10 | MR ---
EXAMINATION TYPE: MR brain wo con DATE OF EXAM: 07/08/2022 COMPARISON: CT brain 07/16/2022 HISTORY: Neuro deficit, evaluate for TIA vs ischemic stroke. CONTRAST: Performed utilizing 0 mL intravenous Gadavist gadolinium contrast. TECHNIQUE: Multiplanar, multiecho imaging on a 3.0 Amirah magnet is performed through the brain. Stud y is not performed within 24 hours of arrival to the hospital. The craniovertebral junction is normal. The pituitary is normal. Diffusion-weighted imaging is performed. There is a punctate hyperintensity within the posterior med ial right cerebellum. Series 303 image 80. Tiny amount of cortical uptake is not excluded in the righ t occipital lobe. Series 303 image 1 4. There is a focal hyperintensity within the right thalamus. Ex ample image series 303 image 136. There is hyperintensity within the right centrum semiovale, image 1 84. Punctate cortical hyperintensity is not excluded in the right occipital lobe sulcus. Series 303 i mage 176. Findings appears suggestive for ischemic change. Significant mass effect or edema to sugges t metastatic disease not apparent, considered less likely. There are scattered areas of hyperintensity on T2 and inversion recovery weighted sequences in the pe riventricular white matter. Correlate for chronic white matter ischemic type changes. Ventricles and sulci are appropriate for the patient age. There is a heterogenous 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 region suspicious for neoplasm. Clinical correlation recommended IMPRESSIONS: 1. Scattered diffusion hyperintensities compatible with acute ischemic changes including right centru m semiovale, right thalamus, and right cortical cerebellum and occipital lobe as discussed above. 2. Heterogenous right parotid mass.
[2022-07-08] MEDS: ASPIRIN 81 MG PO SCH (10:43)
[2022-07-08] MEDS: FAMOTIDINE 20 MG TAB PO SCH (10:43)
[2022-07-08] MEDS: HEPARIN SODIUM,PORCINE/PF 5,000 UNIT/0.5 ML SYRINGE SQ SCH ×2 (10:43→20:32)
[2022-07-08] MEDS: FUROSEMIDE 20 MG TAB PO SCH (10:43)
[2022-07-08] MEDS: LOSARTAN 25 MG TAB PO SCH ×2 (10:43→20:32)
[2022-07-08 10:44] LABS: Chol/HDL Ratio 2.76 Ratio; LDL Cholesterol,Calculated 51.9 mg/dL (0.0-131.0)
[2022-07-08] MEDS: METOPROLOL TARTRATE 50 MG TAB PO SCH (10:44)
[2022-07-08] MEDS: CLOPIDOGREL 75 MG TAB PO SCH (10:44)
[2022-07-08 11:57] LABS: Glucose,Whole Blood 149 mg/dL (70-110)
--- NOTE | 2022-07-08 16:03 | P.PN ---
Subjective Progress Note Date: 07/08/22 This is an 82-year-old female follows with Dr. Sean Medina, with medical history of hypertension, [place] in 2016 with 2 stents, and recent Cardiac catheterization with 2 stents on 06/25/22, former smoker. Presents to the hospital with concern for possible stroke. Patient's family member had reported noticing some slurred speech and some left-sided facial droop yesterday evening and recommended patient to come to the hospital for evaluation. Family also reports patient having some acute confusion. Patient denies any symptoms and states that she was eating a sandwich at the time. She has no teeth and does not wear dentures. Reports no prior history of stroke. She reports having elevated blood pressure in the last month that has been difficult to control. She was supposed to have a left total knee on 07/03/22 however as part of her cardiac clearance for surgery she had failed stress test and underwent PCI about 2 weeks ago and had 2 stents placed. She was started on aspirin and plavix. Echocardiogram at that time showing EF of 50 to 55%, mild pulmonary hypertension, moderate MR, Mild TR. She denies headache, dizziness lightheadedness, denies vision changes, no focal weakness. Denies difficulty swallowing, patient feels she does not have slurred speech. She does have a large lump on her right face for which she is following with Derm for next month. 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 Chest x-ray is negative for acute findings. Her EKG is showing atrial bradycardia with a heart rate of 57. She is resumed on her home medications including aspirin 81 mg as well as Plavix 75 mg daily and Lipitor 80 mg at bedtime. She does present with a white count of 12.4, hgb 11.1. Kidney function is mildly elevated with BUN of 33, creatinine of 1.06. Troponin negative. Urinalysis negative for infection. Neurology is consulted for further evaluation. 07/08/2022 Patient is evaluated today sitting up in the chair with family at the bedside. Family reports that her symptoms seem to be waxing and waning she is having moments of confusion and they state that they noticed a left-sided facial droop she seems to be staring off. The next moment she will be alert 3. MRI does show scattered diffusion hyperintensities compatible with acute ischemic changes noted in the right centrum semiovale, right thalamus and right cortical cerebellar Lexapro lobe. 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 EEG is pending. Cardiology is consulted and neurology recommending ADILIA. Lipid panel completed showing triglycerides of 104, cholesterol 114, LDL 51.9, HDL 41.30. Creatinine 1.10 today. Blood pressure is intermittently elevated in the 190s systolic. Review of Systems Constitutional: Denied any fatigue denied any fever. Cardio vascular: denied any chest pain, palpitations Gastrointestinal: denied any nausea, vomiting, diarrhea Pulmonary: Denied any shortness of breath cough Neurologic denied any new focal deficits All inpatient medications were reviewed and appropriate changes in these medications as dictated in the interval history and assessment and plan. PHYSICAL EXAMINATION: GENERAL: The patient is alert and oriented x3, not in any acute distress. Well developed, well nourished. HEENT: Pupils are round and equally reacting to light. EOMI. No scleral icterus. No conjunctival pallor. Normocephalic, atraumatic. No pharyngeal erythema. No t hyromegaly. CARDIOVASCULAR: S1 and S2 present. No murmurs, rubs, or gallops. PULMONARY: Chest is clear to auscultation, no wheezing or crackles. ABDOMEN: Soft, nontender, nondistended, normoactive bowel sounds. No palpable organomegaly. MUSCULOSKELETAL: No joint swelling or deformity. EXTREMITIES: No cyanosis, clubbing, or pedal edema. NEUROLOGICAL: slight left facial droop. No focal weakness, no ataxia. Alert x 3. SKIN: No rashes. Large cyst/mass on face. 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 further work up needed Brain CT showing bilateral old lacunar infarct in the internal capsule Leukocytosis Anemia, microcytic Mild acute kidney injury likely prerenal Recent cardiac catheterization 06/25/22 with stenting to the left circumflex and discharged on aspirin/plavix/lipitor at that time History myocardial infarction in 2016 with 2 stents Hypertension Former smoker GI prophylaxis DVT prophylaxsis Full Code Plan Cardiac telemetry monitoring Cardiology has been consulted for ADILIA Continue dual antiplatelet therapy Further recommendations from neurology Patient will need to see ENT for the parotid mass can be done outpatient PT/OT/Speech therapy The impression and plan of care has been dictated by Mariya Paris Nurse Practitioner as directed. Dr. Ruben MD I have performed a history and physical examination and medical decision making of this patient, discussed the same with the dictator, and agree with the dictators assessment and plan as written, documented as a scribe. Based on total visit time, I have performed more than 50% of this visit. Objective - Vital Signs Vital signs: Vital Signs Temp 97.9 F 07/08/22 08:00 Pulse 74 07/08/22 08:00 Resp 17 07/08/22 08:00 BP 196/72 07/08/22 08:00 Pulse Ox 97 07/08/22 08:00 FiO2 Intake & Output 07/07/22 07/08/22 07/08/22 18:59 06:59 18:59 Intake Total 360 Balance 360 Intake: Oral 360 Other: Voiding Method Toilet Toilet Toilet # Voids 2 1 - Labs CBC & Chem 7: 07/08/22 07:50 07/08/22 07:50 Labs: Abnormal Lab Results - Last 24 Hours (Table) 07/07/22 07/07/22 07/08/22 Range/Units 16:47 19:58 06:11 Hgb (11.4-16.0) gm/dL MCV (80.0-100.0) fL MCH (25.0-35.0) pg MCHC (31.0-37.0) g/dL RDW (11.5-15.5) % Chloride (98-107) mmol/L Carbon Dioxide (22-30) mmol/L BUN (7-17) mg/dL Creatinine (0.52-1.04) mg/dL Glucose (74-99) mg/dL POC Glucose (mg/dL) 201 H 130 H 127 H (70-110) mg/dL 07/08/22 07/08/22 Range/Units 07:50 07:50 Hgb 10.8 L (11.4-16.0) gm/dL MCV 70.3 L (80.0-100.0) fL MCH 21.0 L (25.0-35.0) pg MCHC 29.9 L (31.0-37.0) g/dL RDW 17.4 H (11.5-15.5) % Chloride 110 H (98-107) mmol/L Carbon Dioxide 21 L (22-30) mmol/L BUN 34 H (7-17) mg/dL Creatinine 1.10 H (0.52-1.04) mg/dL Glucose 155 H (74-99) mg/dL POC Glucose (mg/dL) (70-110) mg/dL Assessment and Plan Time with Patient: Less than 30
[2022-07-08 16:50] LABS: Glucose,Whole Blood 127 mg/dL (70-110)
--- NOTE | 2022-07-08 19:42 | EEG ---
ELECTROENCEPHALOGRAM REPORT PREAMBLE: This is an 82-year-old female with altered mental status. The patient has possible stroke versus TIA, rule out any focal seizure. EEG FINDINGS: This is a 21-channel digital EEG recorded with video component, utilizing 10/20 international system with referential and bipolar montages. Background consists of well developed, well regulated moderate voltage activity in 9 hertz alpha. Background is posterior dominant and reactive to eye opening and closing. The patient was drowsy during most of the study with appearance of bilaterally symmetric theta frequency rhythm. Stage 2 sleep was attained, with presence of sleep spindles and vertex waves. A photic driving response was seen with some flash frequencies. No focal or generalized epileptiform activity was seen. EKG channel showed no obvious arrhythmia. IMPRESSION: This is a normal EEG during wakefulness, drowsiness and stage 2 sleep. No epileptiform activity was seen. MMJAZMINE / HITESHN: [id number] /
[2022-07-08 19:55] LABS: Glucose,Whole Blood 144 mg/dL (70-110)
[2022-07-08] MEDS: ATORVASTATIN 80 MG TAB PO SCH (20:32)
[2022-07-08] MEDS: METOPROLOL TARTRATE 25 MG TAB PO SCH (20:32)
[2022-07-08] MEDS: SODIUM CHLORIDE 0.9% 1,000 ML IV SCH (20:35)
--- NOTE | 2022-07-08 23:27 | P.PN ---
Subjective Progress Note Date: 07/08/22 Patient was seen for a follow-up. Patient is sitting comfortably in the recliner. Patient's daughter and granddaughter were present. Patient's family believes that her symptoms are fluctuating. She will be talking and sometimes her face droops. Sometimes she blanks out. Objective - Vital Signs Vital signs: Vital Signs Temp 98.1 F 07/08/22 12:00 Pulse 73 07/08/22 12:00 Resp 16 07/08/22 12:00 BP 183/65 07/08/22 12:00 Pulse Ox 96 07/08/22 12:00 FiO2 Intake & Output 07/07/22 07/08/22 07/08/22 18:59 06:59 18:59 Intake Total 360 Balance 360 Intake: Oral 360 Other: Voiding Method Toilet Toilet Toilet # Voids 2 1 2 - Exam Patient's mental status, speech and language functions are normal. Face appears less droopy today. These are full. Tongue protrudes the midline. Parachute Cushion Installer is equal. - Labs CBC & Chem 7: 07/08/22 07:50 07/08/22 07:50 Labs: Abnormal Lab Results - Last 24 Hours (Table) 07/07/22 07/07/22 07/08/22 Range/Units 16:47 19:58 06:11 Hgb (11.4-16.0) gm/dL MCV (80.0-100.0) fL MCH (25.0-35.0) pg MCHC (31.0-37.0) g/dL RDW (11.5-15.5) % Chloride (98-107) mmol/L Carbon Dioxide (22-30) mmol/L BUN (7-17) mg/dL Creatinine (0.52-1.04) mg/dL Glucose (74-99) mg/dL POC Glucose (mg/dL) 201 H 130 H 127 H (70-110) mg/dL 07/08/22 07/08/22 07/08/22 Range/Units 07:50 07:50 11:53 Hgb 10.8 L (11.4-16.0) gm/dL MCV 70.3 L (80.0-100.0) fL MCH 21.0 L (25.0-35.0) pg MCHC 29.9 L (31.0-37.0) g/dL RDW 17.4 H (11.5-15.5) % Chloride 110 H (98-107) mmol/L Carbon Dioxide 21 L (22-30) mmol/L BUN 34 H (7-17) mg/dL Creatinine 1.10 H (0.52-1.04) mg/dL Glucose 155 H (74-99) mg/dL POC Glucose (mg/dL) 149 H (70-110) mg/dL Assessment and Plan Assessment: * Possible CVA manifesting with slurred speech, left facial droop and very mild left arm weakness. * Hypertension * Coronary artery disease * X tobacco use Plan: * Carotid Doppler revealed no clinically significant stenosis of bilateral ICA. Antegrade flow in both vertebral arteries. Moderate stenosis bilateral ECA. This is not significant. * MRI brain revealed scattered diffusion hyperintensities compatible with acute ischemic changes including right centrum semiovale, right thalamus, right cortical cerebellum and occipital lobe. I personally reviewed MRI of the brain, agree with the findings. * 2-D echo from 06/26/2022 revealed left ventricular systolic function borderline normal with moderate hypertrophy. Moderate mitral annular as opacification with moderate MR. Mild TR with mild pulmonary hypertension. * Recommend ADILIA rule out embolic source. Patient's strokes are multiple in mult iple vascular territories suggestive of cardiac source. Cardiology consulted. * Patient to be resumed on aspirin 81 mg and Plavix 75 mg. * Fasting lipid panel with cholesterol 214, LDL 51, HDL 41 and triglycerides 104. Continue Lipitor 80 mg daily. * Hemoglobin A1c 5.7, B12 395, folate 9.10, TSH 2.86. * EEG was normal during wakefulness, drowsiness and stage II sleep. No epileptiform activity seen. * Telemetry monitoring so far showing sinus rhythm, sinus bradycardia with first-degree AV block. * Recommend 30 day event monitor after discharge to rule out PAF. * DVT prophylaxis: Patient started on heparin 5000 units subcu every 12 hours. * Discussed with primary physician.
[2022-07-09 06:07] LABS: Glucose,Whole Blood 125 mg/dL (70-110)
[2022-07-09] MEDS: METOPROLOL TARTRATE 50 MG TAB PO SCH (08:18)
[2022-07-09] MEDS: LOSARTAN 25 MG TAB PO SCH ×2 (08:18→20:32)
[2022-07-09] MEDS: FAMOTIDINE 20 MG TAB PO SCH (08:18)
[2022-07-09] MEDS: FUROSEMIDE 20 MG TAB PO SCH (08:18)
[2022-07-09] MEDS: HEPARIN SODIUM,PORCINE/PF 5,000 UNIT/0.5 ML SYRINGE SQ SCH ×2 (08:18→20:31)
[2022-07-09] MEDS: CLOPIDOGREL 75 MG TAB PO SCH (08:18)
[2022-07-09] MEDS: ASPIRIN 81 MG PO SCH (08:18)
--- NOTE | 2022-07-09 09:39 | CONS ---
CONSULTATION CHIEF COMPLAINT: TIA. HISTORY OF PRESENT ILLNESS: Geoffrey is an 82-year-old lady with history of coronary artery disease, who underwent cardiac catheterization and angioplasty with stent placement of circumflex coronary artery at the end of last month, that comes into hospital with slurred speech. I have been consulted to perform a transesophageal echo to rule out cardiac source of thromboembolic phenomenon. At the time of my evaluation, the slurred speech has resolved. She is feeling well and is free of any other symptoms. The patient has a history of hypertension and dyslipidemia and had recently been diagnosed with coronary artery disease. She has a right parotid cyst. MEDICATIONS: Include: 1. Metoprolol. 2. Cozaar 25 b.i.d. 3. Lasix 20 mg daily. 4. Plavix. 5. Lipitor. 6. Aspirin. ALLERGIES: Codeine. FAMILY HISTORY: Negative for premature coronary artery disease. SOCIAL HISTORY: Negative for current smoking, EtOH abuse, or drug abuse. REVIEW OF SYSTEMS: HEENT: Unremarkable. CARDIAC: As described above. RESPIRATORY: Negative. GI: Negative. GENITOURINARY: Negative. ALLERGY/IMMUNOLOGY: Negative. SKIN: Negative. MUSCULOSKELETAL: Negative. ENDOCRINE: Negative. DERM: Negative. CONSTITUTIONAL: Negative. EXTRACTIONS TECHNOLOGIST: Significant for slurred speech. PHYSICAL EXAMINATION: GENERAL: Comfortable at rest. VITAL SIGNS: Heart rate is 57 beats per minute, blood pressure is 140/61, respiratory rate is 18, O2 saturation is 99% on room air. NECK: There is no jugular venous distention. Carotid upstroke is normal. There is no bruit. CHEST: Reveals good air entry bilaterally. I do not hear any crackles or rhonchi. HEART: Reveals first and second heart sounds. No gallop. No murmur. ABDOMEN: Soft, nontender. EXTREMITIES: Did not reveal any edema. Peripheral pulses are felt. IMAGING STUDIES: Her carotid duplex study shows moderate bilateral external carotid stenosis without any significant internal disease. An EKG that showed sinus bradycardia. An MRI of the brain that showed acute ischemic changes. The patient had an echo in May that revealed normal LV function with moderate mitral regurgitation, aortic sclerosis without any stenosis. Cardiac catheterization at that time revealed significant disease involving circumflex coronary artery for which she underwent angioplasty. LABORATORY DATA: Labs showed a potassium of 4.6, creatinine is 1.1, hemoglobin is 10.8, platelet count is 184. ASSESSMENT: 1. Transient ischemic attack, rule out cardiac source of thromboembolic phenomenon. 2. Coronary artery disease, status post angioplasty. 3. Hypertension. 4. Dyslipidemia. PLAN: The patient is on optimal medical therapy. If necessary, we will increase the dose of losartan for better blood pressure control. TIA could be related to recent cardiac catheterization. However, I will perform a ADILIA to rule out intracardiac thrombus or shunting across the interatrial septum. MMODL / IJN: [id number] /
[2022-07-09] MEDS ORDERED: fentaNYL (PF) 50 MCG/ML 2 ML AMP ONE (11:47)
[2022-07-09] MEDS ORDERED: BENZOCAINE SPRAY 1 CAN TOPICAL ONE (11:48)
[2022-07-09] MEDS ORDERED: IV FLUID CONTINUATION 500 ML IV ONE (12:01)
[2022-07-09] MEDS ORDERED: MIDAZOLAM 2 MG/2 ML VIAL IV ONE (12:02)
[2022-07-09] MEDS ORDERED: fentaNYL (PF) 50 MCG/ML 2 ML AMP IV ONE (12:02)
[2022-07-09 12:42] LABS: Glucose,Whole Blood 109 mg/dL (70-110)
--- NOTE | 2022-07-09 13:13 | ECHOT ---
TRANSESOPHAGEAL ECHOCARDIOGRAM INDICATION: TIA. PROCEDURE NOTE: After obtaining informed consent, transesophageal echocardiogram was performed in left lateral position using an Omni plane probe. Local and IV sedation were obtained using Xylocaine spray, Versed, and fentanyl. Total sedation time was 10 minutes. The patient tolerated the procedure well without any obvious immediate complications. FINDINGS: 1. There is no intracardiac thrombus within the left atrial appendage, left atrium, right atrium, right ventricle, or left ventricle. 2. Left atrium appears enlarged. 3. Right atrium and right ventricle seen within normal limits. 4. Left ventricle has normal size and systolic function. 5. Mitral valve appears anatomically normal. There is [id number] central mitral regurgitation noted. 6. Tricuspid valve appears normal. 7. Aortic valve is a 3-leaflet valve. There is no evidence of aortic stenosis or regurgitation. 8. Interatrial septum does not show [id number] shunt by color-flow Doppler or right- to-left shunt by agitated saline contrast study. CONCLUSION: 1. No intracardiac thrombus. 2. Left ventricular systolic function is normal. 3. [id number] mitral regurgitation. No intracardiac thrombus. No evidence of shunting. MMODL / IJN: [id number] /
--- NOTE | 2022-07-09 16:01 | P.PN ---
Subjective Progress Note Date: 07/09/22 This is an 82-year-old female follows with Dr. Sean Medina, with medical history of hypertension, IA in 2016 with 2 stents, and recent Cardiac catheterization with 2 stents on 06/25/22, former smoker. Presents to the hospital with concern for possible stroke. Patient's family member had reported noticing some slurred speech and some left-sided facial droop yesterday evening and recommended patient to come to the hospital for evaluation. Family also reports patient having some acute confusion. Patient denies any symptoms and states that she was eating a sandwich at the time. She has no teeth and does not wear dentures. Reports no prior history of stroke. She reports having elevated blood pressure in the last month that has been difficult to control. She was supposed to have a left total knee on 07/03/22 however as part of her cardiac clearance for surgery she had failed stress test and underwent PCI about 2 weeks ago and had 2 stents placed. She was started on aspirin and plavix. Echocardiogram at that time showing EF of 50 to 55%, mild pulmonary hypertension, moderate MR, Mild TR. She denies headache, dizziness lightheadedness, denies vision changes, no focal weakness. Denies difficulty swallowing, patient feels she does not have slurred speech. She does have a large lump on her right face for which she is following with Derm for next month. 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 Chest x-ray is negative for acute findings. Her EKG is showing atrial bradycardia with a heart rate of 57. She is resumed on her home medications including aspirin 81 mg as well as Plavix 75 mg daily and Lipitor 80 mg at bedtime. She does present with a white count of 12.4, hgb 11.1. Kidney function is mildly elevated with BUN of 33, creatinine of 1.06. Troponin negative. Urinalysis negative for infection. Neurology is consulted for further evaluation. 07/08/2022 Patient is evaluated today sitting up in the chair with family at the bedside. Family reports that her symptoms seem to be waxing and waning she is having moments of confusion and they state that they noticed a left-sided facial droop she seems to be staring off. The next moment she will be alert 3. MRI does show scattered diffusion hyperintensities compatible with acute ischemic changes noted in the right centrum semiovale, right thalamus and right cortical cerebellar Lexapro lobe. 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 EEG is pending. Cardiology is consulted and neurology recommending ADILIA. Lipid panel completed showing triglycerides of 104, cholesterol 114, LDL 51.9, HDL 41.30. Creatinine 1.10 today. Blood pressure is intermittently elevated in the 190s systolic. 07/09/2022 Patient is evaluated up in chair with family at the bedside. ADILIA planned for today. Discussed ENT follow up need on discharge. Further recommendations pending from neurology aspect for DC planning. Blood pressure elevated 175/70. Review of Systems Constitutional: Denied any fatigue denied any fever. Cardio vascular: denied any chest pain, palpitations Gastrointestinal: denied any nausea, vomiting, diarrhea Pulmonary: Denied any shortness of breath cough Neurologic denied any new focal deficits All inpatient medications were reviewed and appropriate changes in these medications as dictated in the interval history and assessment and plan. PHYSICAL EXAMINATION: GENERAL: The patient is alert and oriented x3, not in any acute distress. Well developed, well nourished. HEENT: Pupils are round and equally reacting to light. EOMI. No scleral icterus. No conjunctival pallor. Normocephalic, atraumatic. No pharyngeal erythema. No thyromegaly. CARDIOVASCULAR: S1 and S2 present. No murmurs, rubs, or gallops. PULMONARY: Chest is clear to auscultation, no wheezing or crackles. ABDOMEN: Soft, nontender, nondistended, normoactive bowel sounds. No palpable organomegaly. MUSCULOSKELETAL: No joint swelling or deformity. EXTREMITIES: No cyanosis, clubbing, or pedal edema. NEUROLOGICAL: slight left facial droop. No focal weakness, no ataxia. Alert x 3. SKIN: No rashes. Large cyst/mass on face. 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 further work up needed Brain CT showing bilateral old lacunar infarct in the internal capsule Leukocytosis Anemia, microcytic Mild acute kidney injury likely prerenal Recent cardiac catheterization 06/25/22 with stenting to the left circumflex and discharged on aspirin/plavix/lipitor at that time History myocardial infarction in 2016 with 2 stents Hypertension Former smoker GI prophylaxis DVT prophylaxsis Full Code Plan Cardiac telemetry monitoring ADILIA planned for today Continue dual antiplatelet therapy Further recommendations from neurology Patient will need to see ENT for the parotid mass can be done outpatient PT/OT/Speech therapy Possible DC in the next 24 hours. The impression and plan of care has been dictated by Mariya Paris Nurse Practitioner as directed. Dr. Ruben MD I have performed a history and physical examination and medical decision making of this patient, discussed the same with the dictator, and agree with the dictators assessment and plan as written, documented as a scribe. Based on total visit time, I have performed more than 50% of this visit. Objective - Vital Signs Vital signs: Vital Signs Temp 98 F 07/08/22 20:00 Pulse 57 L 07/09/22 08:00 Resp 16 07/09/22 08:00 BP 145/61 07/09/22 08:00 Pulse Ox 99 07/09/22 08:00 FiO2 Intake & Output 07/08/22 07/09/22 07/09/22 18:59 06:59 18:59 Intake Total 240 Balance 240 Intake: Oral 240 Other: Voiding Method Toilet Toilet # Voids 2 1 - Labs CBC & Chem 7: 07/08/22 07:50 07/08/22 07:50 Labs: Abnormal Lab Results - Last 24 Hours (Table) 07/08/22 07/08/22 07/08/22 Range/Units 11:53 16:39 19:53 POC Glucose (mg/dL) 149 H 127 H 144 H (70-110) mg/dL 07/09/22 Range/Units 06:06 POC Glucose (mg/dL) 125 H (70-110) mg/dL Assessment and Plan Time with Patient: Less than 30
[2022-07-09] MEDS: amLODIPine 5 MG TAB PO SCH (17:11)
[2022-07-09 17:14] LABS: Glucose,Whole Blood 129 mg/dL (70-110)
[2022-07-09 19:55] LABS: Glucose,Whole Blood 118 mg/dL (70-110)
[2022-07-09] MEDS: METOPROLOL TARTRATE 25 MG TAB PO SCH (20:31)
[2022-07-09] MEDS: ATORVASTATIN 80 MG TAB PO SCH (20:31)
[2022-07-09] MEDS: SODIUM CHLORIDE 0.9% 1,000 ML IV SCH (20:32)
[2022-07-10 06:31] LABS: Glucose,Whole Blood 115 mg/dL (70-110)
[2022-07-10 07:26] LABS: Anisocytosis Slight; Basophils % (A) 0 %; Eosinophils # (A) 0.2 k/uL (0-0.7); Eosinophils % (A) 2 %; HCT 32.6 % (34.0-46.0); HGB 10.2 gm/dL (11.4-16.0); Hypochromasia Slight; Lymphocytes # (A) 1.7 k/uL (1.0-4.8); Lymphocytes % (A) 18 %; MCH 21.4 pg (25.0-35.0); MCHC 31.3 g/dL (31.0-37.0); MCV 68.4 fL (80.0-100.0); Mean Platelet Volume 8.9; Microcytosis Marked; Monocytes # (A) 0.6 k/uL (0-1.0); Monocytes % (A) 6 %; Neutrophils # (A) 7.1 k/uL (1.3-7.7); Neutrophils % (A) 74 %; Platelet Count 189 k/uL (150-450); Poikilocytosis Slight; RBC 4.76 m/uL (3.80-5.40); RDW 17.1 % (11.5-15.5); WBC 9.7 k/uL (3.8-10.6)
[2022-07-10 07:40] LABS: Calcium 8.8 mg/dL (8.4-10.2); Potassium 4.7 mmol/L (3.5-5.1)
[2022-07-10 07:58] VITALS: RESP 20
[2022-07-10] MEDS: amLODIPine 5 MG TAB PO SCH (08:39)
[2022-07-10] MEDS: LOSARTAN 25 MG TAB PO SCH (08:39)
[2022-07-10] MEDS: METOPROLOL TARTRATE 50 MG TAB PO SCH (08:39)
[2022-07-10] MEDS: ASPIRIN 81 MG PO SCH (08:39)
[2022-07-10] MEDS: FUROSEMIDE 20 MG TAB PO SCH (08:39)
[2022-07-10] MEDS: HEPARIN SODIUM,PORCINE/PF 5,000 UNIT/0.5 ML SYRINGE SQ SCH (08:39)
[2022-07-10] MEDS: CLOPIDOGREL 75 MG TAB PO SCH (08:39)
[2022-07-10] MEDS: FAMOTIDINE 20 MG TAB PO SCH (08:39)
--- NOTE | 2022-07-10 10:26 | P.PN ---
Subjective Progress Note Date: 07/09/22 Patient was seen for a follow-up. Patient's daughter and granddaughters were present. They believe patient is doing much better. No confusion, no slurring since this morning. Patient's daughter believes that she is about 90% back to baseline. No more facial droop. Even as of yesterday, she was getting slightly confused and slurring in the late afternoon but cleared up last night. Patient is sitting comfortably in the recliner. Patient wants to go home today. Patient undergoing ADILIA today. Patient's family believes that her symptoms are fluctuating. She will be talking and sometimes her face droops. Sometimes she blanks out. Objective - Vital Signs Vital signs: Vital Signs Temp 98 F 07/08/22 20:00 Pulse 57 L 07/09/22 08:00 Resp 16 07/09/22 08:00 BP 145/61 07/09/22 08:00 Pulse Ox 99 07/09/22 08:00 FiO2 Intake & Output 07/08/22 07/09/22 07/09/22 18:59 06:59 18:59 Intake Total 240 Balance 240 Intake: Oral 240 Other: Voiding Method Toilet Toilet Toilet # Voids 2 1 - Exam Patient's mental status, speech and language functions are normal. Face is symmetric. Visual boone are full. Tongue protrudes the midline. Vice President Quality Improvement is equal. - Labs CBC & Chem 7: 07/10/22 06:51 07/10/22 06:51 Labs: Abnormal Lab Results - Last 24 Hours (Table) 07/08/22 07/08/22 07/08/22 Range/Units 11:53 16:39 19:53 POC Glucose (mg/dL) 149 H 127 H 144 H (70-110) mg/dL 07/09/22 Range/Units 06:06 POC Glucose (mg/dL) 125 H (70-110) mg/dL Assessment and Plan Assessment: * Multifocal areas of acute ischemia involving multiple vascular territories, suggestive of cardioembolism. Her CVA manifested with slurred speech, left facial droop and very mild left arm weakness. * Hypertension * Coronary artery disease * X tobacco use Plan: * Carotid Doppler revealed no clinically significant stenosis of bilateral ICA. Antegrade flow in both vertebral arteries. Moderate stenosis bilateral ECA. This is not significant. * MRI brain revealed scattered diffusion hyperintensities compatible with acute ischemic changes including right centrum semiovale, right thalamus, right cortical cerebellum and occipital lobe. I personally reviewed MRI of the brain, agree with the findings. * 2-D echo from 06/26/2022 revealed left ventricular systolic function borderline normal with moderate hypertrophy. Moderate mitral annular as opacification with moderate MR. Mild TR with mild pulmonary hypertension. * Await ADILIA rule out embolic source. Patient's strokes are multiple in multiple vascular territories suggestive of cardiac source. Cardiology input appreciated. * Patient to be resumed on aspirin 81 mg and Plavix 75 mg. * Fasting lipid panel with cholesterol 214, LDL 51, HDL 41 and triglycerides 10 4. Continue Lipitor 80 mg daily. * Hemoglobin A1c 5.7, B12 395, folate 9.10, TSH 2.86. * EEG was normal during wakefulness, drowsiness and stage II sleep. No epileptiform activity seen. * Telemetry monitoring so far showing sinus rhythm, sinus bradycardia with first-degree AV block. * Recommend 30 day event monitor after discharge to rule out PAF. * DVT prophylaxis: Patient started on heparin 5000 units subcu every 12 hours. Addendum: ADILIA revealed no intracardiac thrombus. Left-ventricular systolic function is normal. Mild to moderate mitral regurgitation. No intracardiac thrombus. No evidence of shunting with color flow Doppler or agitated saline contrast study.
--- NOTE | 2022-07-10 10:48 | P.PN ---
Subjective Progress Note Date: 07/10/22 HISTORY OF PRESENT ILLNESS: Patient underwent ADILIA yesterday with Dr. Washington which was negative for intracardiac thrombus, left ventricular systolic function was normal, [id number] mitral regurgitation, no evidence of shunting. Patient examined this morning at the bedside. Patient denies chest pain or pressure. She denies shortness of breath. Vital signs are stable. PHYSICAL EXAM: VITAL SIGNS: Reviewed. GENERAL: Well-developed in no acute distress. NECK: Supple. No JVD or thyromegaly LUNGS: Respirations even and unlabored. Lungs essentially clear to auscultation bilaterally. HEART: Regular rate and rhythm. S1 and S2 heard. EXTREMITIES: Normal range of motion. No clubbing or cyanosis. Peripheral pulses intact. No lower extremity edema ASSESSMENT: Acute CVA Coronary artery disease Hypertension Hyperlipidemia Former nicotine dependence PLAN: Plan for outpatient event monitor from cardiology office. This can be set up at follow up outpatient with Dr. Salinas Patient is currently stable from a cardiac standpoint. We will sign off. Patient to follow up on an outpatient basis with Dr. Salinas Nurse practitioner note has been reviewed by physician. Signing provider agrees with the documented findings, assessment, and plan of care. Objective - Vital Signs Vital signs: Vital Signs Temp 98 F 07/10/22 07:57 Pulse 57 L 07/10/22 07:57 Resp 20 07/10/22 07:57 BP 150/71 07/10/22 07:57 Pulse Ox 97 07/10/22 07:57 FiO2 Intake & Output 07/09/22 07/10/22 07/10/22 18:59 06:59 18:59 Intake Total 168 180 Balance 168 180 Intake: IV 50 Oral 118 180 Other: Voiding Method Toilet Toilet # Voids 1 - Labs CBC & Chem 7: 07/10/22 06:51 07/10/22 06:51 Labs: Abnormal Lab Results - Last 24 Hours (Table) 07/09/22 07/09/22 07/10/22 Range/Units 16:45 19:54 06:30 Hgb (11.4-16.0) gm/dL Hct (34.0-46.0) % MCV (80.0-100.0) fL MCH (25.0-35.0) pg RDW (11.5-15.5) % Chloride (98-107) mmol/L BUN (7-17) mg/dL Creatinine (0.52-1.04) mg/dL Glucose (74-99) mg/dL POC Glucose (mg/dL) 129 H 118 H 115 H (70-110) mg/dL 07/10/22 07/10/22 Range/Units 06:51 06:51 Hgb 10.2 L (11.4-16.0) gm/dL Hct 32.6 L (34.0-46.0) % MCV 68.4 L (80.0-100.0) fL MCH 21.4 L (25.0-35.0) pg RDW 17.1 H (11.5-15.5) % Chloride 109 H (98-107) mmol/L BUN 34 H (7-17) mg/dL Creatinine 1.28 H (0.52-1.04) mg/dL Glucose 103 H (74-99) mg/dL POC Glucose (mg/dL) (70-110) mg/dL
[2022-07-10 11:14] VITALS: BP 157/68; PULSE 58; TEMP 98.3
[2022-07-10 11:42] LABS: Glucose,Whole Blood 101 mg/dL (70-110)
--- NOTE | 2022-07-11 22:53 | P.DS ---
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 Patient has been cleared by neurology and pulmonary services. Patient will continue on aspirin 81 mg daily and plavix 75 mg daily on discharge as well as lipitor 80 mg daily for primary stroke prevention. Additionally patient has underwent PCI with 2 cardiac stents placed on 06/26/22 which is when she was placed on aspirin and plavix. Patient is recommended to follow up closely with ENT on discharge for 4.1 cm mass in the parotid region and likely will need surgical removal vs. biopsy. This is discussed in detail with patient and family. She is recommended for close follow up with cardiology and will need a 30 day event monitor placed to rule out paroxysmal atrial fibrillation. Recommended for close follow up with neurology on discharge and patient is given information regarding providers to contact. In addition to her home blood pressure regimen she is also started on amlodipine 10 mg daily. She will need to follow up with her PCP Dr. Medina in 1 to 2 days. -Cardiology appointment has been made for 07/29/22 at 1545. Hospital Course This is an 82-year-old female follows with Dr. Sean Medina, with medical history of hypertension, NC in 2016 with 2 stents, and recent Cardiac catheterization with 2 stents on 06/26/22, former smoker. Presents to the hospital with concern for possible stroke. Patient's family member had reported noticing some slurred speech and some left-sided facial droop yesterday evening and recommended patient to come to the hospital for evaluation. Family also reports patient having some acute confusion. Patient denies any symptoms and states that she was eating a sandwich at the time. She has no teeth and does not wear dentures. Reports no prior history of stroke. She reports having elevated blood pressure in the last month that has been difficult to control. She was supposed to have a left total knee on 07/03/22 however as part of her cardiac clearance for surgery she had failed stress test and underwent PCI about 2 weeks ago and had 2 stents placed. She was started on aspirin and plavix. Echocardiogram at that time showing EF of 50 to 55%, mild pulmonary hypertension, moderate MR, Mild TR. She denies headache, dizziness lightheadedness, denies vision changes, no focal weakness. Denies difficulty swallowing, patient feels she does not have slurred speech. She does have a large lump on her right face for which she is following with Derm for next month. 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 Chest x-ray is negative for acute findings. Her EKG is showing atrial bradycardia with a heart rate of 57. She does present with a white count of 12.4, hgb 11.1. Kidney function is mildly elevated with BUN of 33, creatinine of 1.06. Troponin negative. Urinalysis negative for infection. Neurology was consulted for further evaluation and recommending follow up MRI which does reveal multifocal acute stroke in the right centrum semiovale, right thalamus, right cortical cerebellum and occiptal lobe. EEG negative for seizure like activity, carotid doppler showing moderate stenosis of the bilateral ECA and no clinically significant stenosis of the bilateral ICA. Cardiology was consulted for further evaluation and ADILIA was performed showing no intracardiac thrombus with normal LV systolic function. There is mild to moderate tricuspid regurgitation no intracardiac thrombus and no evidence of shunting. She is recommended to continue on aspirin and plavix at this time in addition to lipitor. Recommended to follow up with cardiology and to have 30 day event monitor placed to rule out paroxysmal atrial fibrillation. Additionally MRI had noted a 4.1 cm mass in the right parotid region which patient has visible large fist sized mass on the right side of her face in the parotid region as noted she has an appointment with dermatology. We are recommending patient to follow up with ENT for further evaluation and likely patient will need biopsy vs. surgical removal. Patient symptoms have improved at this time. Additional labs include TSH 2.860, B12 395, folate 9.10. Lipid panel showing triglycerides 104, cholesterol 114, LDL 51, HDL 41.3 07/10/2022 Patient is evaluated today with family at bedside. She is currently denying chest pain, no shortness of breath. No dizziness or lightheadedness. No swallowing difficulties. No focal weakness noted. PT/OT have cleared patient for safe discharge home and speech therapy recommending to continue on regular diet. Currently she is alert x 3, lungs are clear, S1 S2 auscultated with regular rate and rhythm. No focal deficits noted. Left facial droop hes resolved. No peripheral edema noted no JVD. Her labs today are showing white count of 9.7, hgb of 10.2, sodium 140, potassium 4.7, BUN 34, creatinine 1.28, blood glucose in the 100s. Afebrile, heart rate 58, blood pressure 157/68, 96% room air. Cleared for discharge from neurology standpoint. The above recommendations are in place. Total time taken in discharge planning greater than 35 minutes. Please see medication reconciliation for a list of current medication. Thank you for allowing us to participate in the care of this patient. The impression and plan of care has been dictated by Mariya Paris, Nurse Practitioner as directed. Dr. Ruben MD I have performed a history and physical examination and medical decision making of this patient, discussed the same with the dictator, and agree with the dictators assessment and plan as written, documented as a scribe. Based on total visit time, I have performed more than 50% of this visit. Patient Condition at Discharge: Stable Plan - Discharge Summary New Discharge Prescriptions: New Famotidine [Pepcid] 20 mg PO DAILY #30 tab amLODIPine [Norvasc] 10 mg PO DAILY #30 tablet Continue Furosemide [Lasix] 20 mg PO DAILY Losartan Potassium [Cozaar] 25 mg PO BID Atorvastatin Calcium [Lipitor] 80 mg PO HS Aspirin 81 mg PO DAILY Clopidogrel [Plavix] 75 mg PO DAILY Nitroglycerin Sl Tabs [Nitrostat] 0.4 mg SL DAILY PRN PRN Reason: Chest Pain Changed Metoprolol Tartrate 25 mg PO BID #60 tab Discontinued Metoprolol Tartrate 50 mg PO DAILY Discharge Medication List Furosemide [Lasix] 20 mg PO DAILY 06/24/22 [History] Losartan Potassium [Cozaar] 25 mg PO BID 06/24/22 [History] Aspirin 81 mg PO DAILY 06/26/22 [History] Atorvastatin Calcium [Lipitor] 80 mg PO HS 06/26/22 [History] Clopidogrel [Plavix] 75 mg PO DAILY 06/26/22 [History] Nitroglycerin Sl Tabs [Nitrostat] 0.4 mg SL DAILY PRN 06/26/22 [History] Famotidine [Pepcid] 20 mg PO DAILY #30 tab 07/10/22 [Rx] Metoprolol Tartrate 25 mg PO BID #60 tab 07/10/22 [Rx] amLODIPine [Norvasc] 10 mg PO DAILY #30 tablet 07/10/22 [Rx] Follow up Appointment(s)/Referral(s): Bonilla Salinas MD [STAFF PHYSICIAN] - 07/29/22 3:45 pm Genna Kaminski MD [REFERRING] - 1 Week Joaquín Watters DO [Doctor of Osteopathic Medicine] - 1 Week Caitlyn Jenkins MD [Medical Doctor] - 1 Week Bob Jacobo MD [STAFF PHYSICIAN] - 1 Week Sean Medina MD [Primary Care Provider] - 1-2 days (please call office when open to make follow up appointment) Merritt Quesada DO [STAFF PHYSICIAN] - 1 Week Ambulatory/Diagnostic Orders: Basic Metabolic Panel [LAB.AMB] Time Frame: 3 Days, Location: None Selected Patient Instructions/Handouts: Ischemic Stroke (DC) Activity/Diet/Wound Care/Special Instructions: Follow up with your PCP in 1 to 2 days Follow up with cardiology Follow up with neurology on discharge in 1 to 2 weeks Continue aspirin/plavix/lipitor for stroke prevention Hold lasix for 2 days and resume on Wednesday07/13/22 Need to follow up with ENT on discharge for evaluation of mass in the parotid area on right face may need biopsy vs. removal Recommend patient to [facility] at [facility] for placement of a 30 day event monitor to rule out paroxysmal atrial fibrillation Dr Jenkins, Dr Quesada, Dr Jacobo, Dr Kaminski - local neurologists, please make an appointment with one of these providers. Discharge Disposition: HOME SELF-CARE
--- NOTE | 2022-07-15 11:56 | CDI ---
Documentation Clarification Form Date: 07/15/22 From: Angy Schmidt Admit Date: 07/08/2022 2:15:00 PM Patient Name: Geoffrey Marin Visit Number: [id number] Discharge Date: 07/10/2022 4:45:00 PM ATTENTION: The Clinical Documentation Specialists (CDI) and [facility] Coding Staff appreciate your assistance in clarifying documentation. Please respond to the clarification below the line at the bottom and electronically sign. The CDI & [facility] Coding staff will review the response and follow-up if needed. Please note: Queries are made part of the Legal Health Record. If you have any questions, please contact the author of this message via ITS. Dr. Mirta Miranda, Acute kidney injury likely prerenal is documented in the H&P, PNs & DS, which may lack sufficient clinical evidence/support in the medical record. Additional clarification is requested. History/Risk Factors: cerebral infarction, HTN, HLD, CAD, iron deficiency anemia, mitral valve insufficiency, old SD Clinical Indicators: Cr: 1.06 (07/06), 1.10 (07/08) 1.28 (07/10) Best practice, KDIGO not only requires an increase of 0.3, but that increase needs to occur within a 48-hour period. 48 hours means that we can only compare the 07/10 results as far back as 07/08, which was 1.10, giving us a 48-hour increase of 0.18. If we extend beyond the 48-hour window, then we would need the increase to be 1.5x over baseline (1.06 being lowest documented 1.5x increase would be 1.59). Treatment: Received IV fluids, no nephrology consult Please clarify if acute kidney injury is a valid diagnosis? [ x ] Yes, acute kidney injury is present as evidence by (additional clinical support): [ ] No, acute kidney injury is ruled out [ ] Other (please specify diagnosis) [ ] Unable to determine MTDD
== END 2022-07-10 16:45 | disposition home or self-care (01) | DRG 65 ==
LOC: EC 17:15 → 3SCARD 21:14 → OBSVTOIN 07-08 14:15
PROVIDERS: ADMIT Hospitalist; ATTEND Hospitalist
PROC: B246ZZ4 Ultrasonography of Right and Left Heart, Transesophageal (ICD-10-PCS; principal; 2022-07-09 11:55)
DX: I63.541 Cerebral infarction due to unspecified occlusion or stenosis of right cerebellar artery (principal); N17.9 Acute kidney failure, unspecified; D49.0 Neoplasm of unspecified behavior of digestive system; D50.9 Iron deficiency anemia, unspecified; E78.5 Hyperlipidemia, unspecified; I10 Essential (primary) hypertension; I27.20 Pulmonary hypertension, unspecified; I25.10 Atherosclerotic heart disease of native coronary artery without angina pectoris; I34.0 Nonrheumatic mitral (valve) insufficiency; I25.2 Old myocardial infarction; R47.81 Slurred speech; R29.810 Facial weakness; R00.1 Bradycardia, unspecified; Z79.82 Long term (current) use of aspirin; Z79.02 Long term (current) use of antithrombotics/antiplatelets; Z79.899 Other long term (current) drug therapy; Z87.891 Personal history of nicotine dependence; Z86.73 Personal history of transient ischemic attack (TIA), and cerebral infarction without residual deficits; Z95.5 Presence of coronary angioplasty implant and graft
CPT/HCPCS: 36415; 70450; 70551; 71046; 80048; 80053; 80061; 81003; 82607; 82746; 83036; 83880; 84443; 84484; 85025; 85610; 85730; 93005; 93312; 93320; 93325; 93880; 94760; 95819; 99291

== ENCOUNTER → 2022-09-25 | Outpatient (CLI) | payer MEDICARE ==
[2022-09-25 19:29] LABS: Basophils # (A) 0.04 X 10*3/uL (0.00-0.10); Basophils % (A) 0.4 %; Elliptocytes 2+; Eosinophils # (A) 0.29 X 10*3/uL (0.04-0.35); Eosinophils % (A) 2.8 %; HCT 36.4 % (37.2-46.3); HGB 10.9 g/dL (12.0-15.0); Immature Grans, Automated 0.9 %; Lymphocytes # (A) 1.41 X 10*3/uL (0.90-5.00); Lymphocytes % (A) 13.8 %; MCHC 29.9 g/dL (32.0-37.0); MCV 70.1 fL (80.0-97.0); Monocytes # (A) 0.77 X 10*3/uL (0.20-1.00); Monocytes % (A) 7.5 %; NRBC Per 100 WBC 0 /100 WBCS (0.0-0.0); Neutrophils # (A) 7.62 X 10*3/uL (1.80-7.70); Neutrophils % (A) 74.6 %; Platelet Count 211 X 10*3/uL (140-440); RBC 5.19 X 10*6/uL (4.10-5.20); RDW 18.8 % (11.5-14.5); Schistocytes 2+; WBC 10.22 X 10*3/uL (4.50-10.00)
[2022-09-28 12:09] LABS: ALT 24 U/L (4-34); AST 23 U/L (14-36); African American GFR (CKD) 58 (>60 ml/min/1.73 sqM); Albumin 3.7 g/dL (3.5-5.0); Albumin/Globulin Ratio 1.3; Alkaline Phosphatase 81 U/L (38-126); Anion Gap 8 mmol/L; Blood Urea Nitrogen 25 mg/dL (7-17); Calcium 8.9 mg/dL (8.4-10.2); Carbon Dioxide 26 mmol/L (22-30); Chloride 109 mmol/L (98-107); Globulin 2.9 g/dL; Glucose 120 mg/dL (74-99); Non-African American GFR(CKD) 50 (>60 ml/min/1.73 sqM); Potassium 4.1 mmol/L (3.5-5.1); Sodium 143 mmol/L (137-145); Total Bilirubin 0.7 mg/dL (0.2-1.3); Total Protein 6.6 g/dL (6.3-8.2)
== END | disposition home or self-care (01) ==
LOC: LABWHC1 13:26
PROVIDERS: ATTEND Family Medicine
DX: I10 Essential (primary) hypertension (principal)
CPT/HCPCS: 36415; 80053; 85025

== ENCOUNTER → 2022-09-30 | Outpatient (CLI) | payer MEDICARE | END | disposition home or self-care (01) | LOC: LABWHC1 10:34 | PROVIDERS: ATTEND Family Medicine | DX: D64.9 Anemia, unspecified (principal) | CPT/HCPCS: 36415; 82728; 83540 ==

== ENCOUNTER → 2022-11-19 | Outpatient (CLI) | payer MEDICARE ==
[2022-11-19 22:00] LABS: Basophils # (A) 0.04 X 10*3/uL (0.00-0.10); Basophils % (A) 0.4 %; Elliptocytes 2+; Eosinophils # (A) 0.28 X 10*3/uL (0.04-0.35); Eosinophils % (A) 2.5 %; HCT 36.7 % (37.2-46.3); HGB 10.8 g/dL (12.0-15.0); Immature Grans, Automated 1.2 %; Lymphocytes # (A) 1.66 X 10*3/uL (0.90-5.00); Lymphocytes % (A) 14.5 %; MCH 20.7 pg (27.0-32.0); MCHC 29.4 g/dL (32.0-37.0); MCV 70.2 fL (80.0-97.0); Microcytosis (M) 2+; Monocytes # (A) 1.11 X 10*3/uL (0.20-1.00); Monocytes % (A) 9.7 %; NRBC Per 100 WBC 0 /100 WBCS (0.0-0.0); Neutrophils # (A) 8.19 X 10*3/uL (1.80-7.70); Neutrophils % (A) 71.7 %; Platelet Count 192 X 10*3/uL (140-440); RBC 5.23 X 10*6/uL (4.10-5.20); RDW 18.5 % (11.5-14.5); WBC 11.42 X 10*3/uL (4.50-10.00)
== END | disposition home or self-care (01) ==
LOC: LABWHC1 12:23
PROVIDERS: ATTEND Family Medicine
DX: D64.9 Anemia, unspecified (principal)
CPT/HCPCS: 36415; 82728; 83540; 85025

== ENCOUNTER 2023-01-03 13:37 | Emergency (ER) | payer MEDICARE ==
[2023-01-03 13:44] VITALS: TEMP 97.9
[2023-01-03] MEDS ORDERED: KETOROLAC 15 MG/ML 1 ML VIAL IM STA (13:56)
--- NOTE | 2023-01-03 14:13 | ED ---
General Adult HPI - General Chief complaint: Neck Pain/Injury Stated complaint: neck pain Time Seen by Provider: 01/03/23 13:40 Source: patient, RN notes reviewed, old records reviewed Mode of arrival: ambulatory Limitations: no limitations - History of Present Illness Initial comments: This is an 82-year-old female who presents to the emergency department complaining of waking up this morning with pain in the left side of her neck. Patient states he goes from the left shoulder up into the base of the skull and down just lateral to the shoulder blade. Basically in the distribution of the trapezius muscle. Patient denies any chest pain patient denies shortness of breath patient denies any difficulty breathing. Patient states the pain is worse when she shrugs her shoulders or moves her neck to the left or right or up or down. Patient states she was holding a pillow when she slept which is unusual and she thinks that is what hurt her neck. Patient states she slept at her son's place and instead of her own place. - Related Data Home Medications Medication Instructions Recorded Confirmed Furosemide [Lasix] 20 mg PO DAILY 06/24/22 07/06/22 Losartan Potassium [Cozaar] 25 mg PO BID 06/24/22 07/06/22 Aspirin 81 mg PO DAILY 06/26/22 07/06/22 Atorvastatin Calcium [Lipitor] 80 mg PO HS 06/26/22 07/06/22 Clopidogrel [Plavix] 75 mg PO DAILY 06/26/22 07/06/22 Nitroglycerin Sl Tabs [Nitrostat] 0.4 mg SL DAILY PRN 06/26/22 07/06/22 Previous Rx's Medication Instructions Recorded Famotidine [Pepcid] 20 mg PO DAILY #30 tab 07/10/22 Metoprolol Tartrate 25 mg PO BID #60 tab 07/10/22 amLODIPine [Norvasc] 10 mg PO DAILY #30 tablet 07/10/22 Cyclobenzaprine [Flexeril] 5 mg PO TID #10 tab 01/03/23 Ibuprofen [Motrin] 600 mg PO Q6HR PRN #16 tab 01/03/23 Allergies Allergy/AdvReac Type Severity Reaction Status Date / Time codeine AdvReac abeba Verified 01/03/23 13:44 Review of Systems ROS Statement: Those systems with pertinent positive or pertinent negative responses have been documented in the HPI. ROS Other: All systems not noted in ROS Statement are negative. Past Medical History Past Medical History: Hypertension Additional Past Medical History / Comment(s): cyst on right side of face History of Any Multi-Drug Resistant Organisms: None Reported Past Surgical History: Heart Catheterization With Stent, Tonsillectomy Date of Last Stent Placement:: 06/26/2022 Past Psychological History: No Psychological Hx Reported Smoking Status: Former smoker Past Alcohol Use History: Occasional Past Drug Use History: None Reported - Past Family History Mother Additional Family Medical History / Comment(s): multiple family members with heart disease General Exam - General Exam Comments Initial Comments: GENERAL: Patient is well-developed and well-nourished. Patient is nontoxic and well- hydrated and is in mild distress. ENT: Neck is soft and supple. No significant lymphadenopathy is noted. Oropharynx is clear. Moist mucous membranes. Neck has full range of motion without norman citing any pain. EYES: The sclera were anicteric and conjunctiva were pink and moist. Extraocular movements were intact and pupils were equal round and reactive to light. Eyelids were unremarkable. PULMONARY: Unlabored respirations. Good breath sounds bilaterally. No audible rales rhonchi or wheezing was noted. CARDIOVASCULAR: There is a regular rate and rhythm without any murmurs gallops or rubs. ABDOMEN: Soft and nontender with normal bowel sounds. SKIN: Skin is clear with no lesions or rashes and otherwise unremarkable. NEUROLOGIC: Patient is alert and oriented x3. Cranial nerves II through XII are grossly intact. Motor and sensory are also intact. Normal speech, volume and content. Symmetrical smile. MUSCULOSKELETAL: Normal extremities with adequate strength and full range of motion. Patient's trapezius on the left was extremely tender to touch and it was reproducible with just about any movement of the neck. LYMPHATICS: No significant lymphadenopathy is noted PSYCHIATRIC: Normal psychiatric evaluation Limitations: no limitations Course Vital Signs 01/03/23 13:38 Temperature 97.9 F Pulse Rate 68 Respiratory 18 Rate Blood Pressure 159/70 O2 Sat by Pulse 98 Oximetry Medical Decision Making - Medical Decision Making EKG was interpreted by myself shows a sinus rhythm at 65 bpm DC interval 254 QRS is 106 QTC is 392 QTC is 43. Patient's EKG shows no ST segment elevation or depression. Was pt. sent in by a medical professional or institution (, PA, CLOTH BLEACHING RANGE OPERATOR CHIEF, urgent care, hospital, or long term...) When possible be specific @ -No Did you speak to anyone other than the patient for history (EMS, parent, family, police, friend...)? What history was obtained from this source @ -Daughter did quite a bit of a history Did you review nursing and triage notes (agree or disagree)? Why? @ -I reviewed and agree with nursing and triage notes Were old charts reviewed (outside hosp., previous admission, EMS record, old EKG, old radiological studies, urgent care reports/EKG's, long term records)? Report findings @ -I reviewed prior lab work for kidney function Differential Diagnosis (chest pain, altered mental status, abdominal pain women, abdominal pain men, vaginal bleeding, weakness, fever, dyspnea, syncope, headache, dizziness, GI bleed, back pain, seizure, CVA, palpatations, mental health, musculoskeletal)? @ -Differential Musculoskeletal Muscular strain, contusion, ligament sprain, fracture, arthritis, septic arthritis, bursitis, cellulitis, muscle spasm, nerve compression, DVT, arterial occlusion, herpes zoster, electrolyte abnormality, tumor.... This is not meant to be in all inclusive list EKG interpreted by me (3pts min.). @ -As above X-rays interpreted by me (1pt min.). @ -None done CT interpreted by me (1pt min.). @ -None done U/S interpreted by me (1pt. min.). @ -None done What testing was considered but not performed or refused? (CT, X-rays, U/S, labs)? Why? @ -None What meds were considered but not given or refused? Why? @ -None Did you discuss the management of the patient with other professionals (professionals i.e. HONEY Beltran, CLOTH BLEACHING RANGE OPERATOR CHIEF, lab, RT, psych nurse, social science instructor, keel press operator, teacher, security officer supervisor, showcase maker)? Give summary @ -No Was smoking cessation discussed for >3mins.? @ -No Was critical care preformed (if so, how long)? @ -No Were there social determinants of health that impacted care today? How? (Homelessness, low income, unemployed, alcoholism, drug addiction, transportation, low edu. Level, literacy, decrease access to med. care, shelter, rehab)? @ -No Was there de-escalation of care discussed even if they declined (Discuss DNR or withdrawal of care, Hospice)? DNR status @ -No What co-morbidities impacted this encounter? (DM, HTN, Smoking, COPD, CAD, Cancer, CVA, ARF, Chemo, Hep., AIDS, mental health diagnosis, sleep apnea, morbid obesity)? @ -None Was patient admitted / discharged? Hospital course, mention meds given and route, prescriptions, significant lab abnormalities, going to OR and other pertinent info. @ -She received Toradol and Valium and they went back in and reevaluated her and she had full range of motion without pain she felt considerably better. Undiagnosed new problem with uncertain prognosis? @ -No Drug Therapy requiring intensive monitoring for toxicity (Heparin, Nitro, Insulin, Cardizem)? @ -No Were any procedures done? @ -No Diagnosis/symptom? @ -Trapezius muscle strain Acute, or Chronic, or Acute on Chronic? @ -Acute Uncomplicated (without systemic symptoms) or Complicated (systemic symptoms)? @ -Uncomplicated Side effects of treatment? @ -No Exacerbation, Progression, or Severe Exacerbation? @ -No Poses a threat to life or bodily function? How? (Chest pain, [place], [place], pneumonia, PE, COPD, DKA, ARF, appy, cholecystitis, CVA, Diverticulitis, Homicidal, Suicidal, threat to staff... and all critical care pts) @ -No Disposition Clinical Impression: Strain of neck muscle Disposition: HOME SELF-CARE Instructions (If sedation given, give patient instructions): Cervical Strain (ED) Prescriptions: Cyclobenzaprine [Flexeril] 5 mg PO TID #10 tab Ibuprofen [Motrin] 600 mg PO Q6HR PRN #16 tab PRN Reason: For pain Is patient prescribed a controlled substance at d/c from ED?: No Referrals: Sean Mdeina MD [Primary Care Provider] - 1-2 days Time of Disposition: 15:54
[2023-01-03 16:16] VITALS: BP 145/64; PULSE 62; RESP 17
== END 2023-01-03 16:14 | disposition home or self-care (01) ==
LOC: EC 13:37
DX: S16.1XXA Strain of muscle, fascia and tendon at neck level, initial encounter (principal); I10 Essential (primary) hypertension; Z87.891 Personal history of nicotine dependence; Z88.5 Allergy status to narcotic agent; Z79.82 Long term (current) use of aspirin; Z79.899 Other long term (current) drug therapy; X50.9XXA Other and unspecified overexertion or strenuous movements or postures, initial encounter
CPT/HCPCS: 93005; 99284; 96372 ×2; J3360; J1885

== ENCOUNTER → 2023-10-01 | Outpatient (CLI) | payer MEDICARE ==
[2023-10-01 16:09] LABS: ALT 12 U/L (8-44); AST 17 U/L (13-35); Albumin 4.1 g/dL (3.8-4.9); Albumin/Globulin Ratio 1.64 Ratio (1.60-3.17); Alkaline Phosphatase 121 U/L (41-126); BUN/Creat Ratio 15.23 Ratio (12.00-20.00); Blood Urea Nitrogen 19.8 mg/dL (9.0-27.0); Calcium 9.7 mg/dL (8.7-10.3); Carbon Dioxide 24.5 mmol/L (21.6-31.8); Chloride 107 mmol/L (96-109); Chol/HDL Ratio 3.56 Ratio; Globulin 2.5 g/dL (1.6-3.3); Glucose 106 mg/dL (70-110); LDL Cholesterol,Calculated 50.8 mg/dL (0.0-131.0); Potassium 4.2 mmol/L (3.5-5.5); Sodium 142 mmol/L (135-145); Total Bilirubin 0.6 mg/dL (0.3-1.2); Total Protein 6.6 g/dL (6.2-8.2)
[2023-10-01 16:14] LABS: Basophils # (A) 0.07 X 10*3/uL (0.00-0.10); Basophils % (A) 0.8 %; Elliptocytes 2+; Eosinophils # (A) 0.27 X 10*3/uL (0.04-0.35); Eosinophils % (A) 3.1 %; HCT 38.7 % (37.2-46.3); HGB 11.9 g/dL (12.0-15.0); Lymphocytes # (A) 1.43 X 10*3/uL (0.90-5.00); Lymphocytes % (A) 16.4 %; MCH 21.1 pg (27.0-32.0); MCHC 30.7 g/dL (32.0-37.0); MCV 68.7 FL (80.0-97.0); Monocytes # (A) 0.68 X 10*3/uL (0.20-1.00); Monocytes % (A) 7.8 %; NRBC Per 100 WBC 0 X 10*3/uL (0.00-0.01); Neutrophils # (A) 6.25 X 10*3/uL (1.80-7.70); Neutrophils % (A) 71.4 %; Platelet Count 197 X 10*3/uL (140-440); RBC 5.63 X 10*6/uL (4.10-5.20); RDW 18.6 % (11.5-14.5); Schistocytes 1+; WBC 8.74 X 10*3/uL (4.50-10.00)
== END | disposition home or self-care (01) ==
LOC: LABWHC1 08:56
PROVIDERS: ATTEND Family Medicine
DX: Z00.00 Encounter for general adult medical examination without abnormal findings (principal); I63.89 Other cerebral infarction; I10 Essential (primary) hypertension; E55.9 Vitamin D deficiency, unspecified
CPT/HCPCS: 36415; 80053; 80061; 82306; 84443; 85025